=== PATIENT | female | born 2000 | race Caucasian/White ===

== ENCOUNTER → 2025-02-06 | Outpatient (CLI) | payer OTHER, SELFPAY ==
--- OUTSIDE RECORDS SUMMARY | 2025-02-06 09:40 | XMS RPT_ITS | CCD ---
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 Name Role Phone PROVIDER, UNKNOWN Admitting Unavailable PROVIDER, UNKNOWN Attending Unavailable DIAZ, CHUY Attending Unavailable LUIS ENRIQUE ANDERSON Consulting Unavailable DIAZ, CHUY Primary Care Unavailable DIAZ, CHUY Admitting Unavailable PROVIDER, UNKNOWN Consulting Unavailable PROVIDER, UNKNOWN Consulting Unavailable PROVIDER, UNKNOWN Consulting Unavailable DIAZ, CHUY Attending Unavailable BROWN, LUIS ENRIQUE Consulting Unavailable DIAZ, CHUY Primary Care Unavailable DIAZ, CHUY Admitting Unavailable PROVIDER, UNKNOWN Consulting Unavailable PROVIDER, UNKNOWN Consulting Unavailable PROVIDER, UNKNOWN Consulting Unavailable LUIS ENRIQUE ANDERSON Attending Unavailable BROWN, LUIS ENRIQUE Consulting Unavailable BROWN, LUIS ENRIQUE Primary Care Unavailable BROWN, LUIS ENRIQUE Admitting Unavailable PROVIDER, UNKNOWN Consulting Unavailable PROVIDER, UNKNOWN Consulting Unavailable PROVIDER, UNKNOWN Consulting Unavailable DIAZ, CHUY Attending Unavailable BROWN, LUIS ENRIQUE Consulting Unavailable DIAZ, CHUY Primary Care Unavailable DIAZ, CHUY Admitting Unavailable PROVIDER, UNKNOWN Consulting Unavailable PROVIDER, UNKNOWN Consulting Unavailable PROVIDER, UNKNOWN Consulting Unavailable DIAZ, CHUY Attending Unavailable HECTOR, LUIS ENRIQUE Consulting Unavailable DIAZ, CHUY Primary Care Unavailable DIAZ, CHUY Admitting Unavailable PROVIDER, UNKNOWN Consulting Unavailable PROVIDER, UNKNOWN Consulting Unavailable PROVIDER, UNKNOWN Consulting Unavailable BROWN, LUIS ENRIQUE Consulting Unavailable DIAZ, CHUY Admitting Unavailable DIAZ, CHUY Attending Unavailable DIAZ, CHUY Primary Care Unavailable PROVIDER, UNKNOWN Consulting Unavailable PROVIDER, UNKNOWN Consulting Unavailable PROVIDER, UNKNOWN Consulting Unavailable DIAZ, CHUY Admitting Unavailable BROWN, LUIS ENRIQUE Consulting Unavailable DIAZ, CHUY Attending Unavailable DIAZ, CHUY Primary Care Unavailable PROVIDER, UNKNOWN Consulting Unavailable PROVIDER, UNKNOWN Consulting Unavailable PROVIDER, UNKNOWN Consulting Unavailable BARRETT DELGADILLO Attending Unavail able BARRETT DELGADILLO Attending Unavail able MILANJASON SKINNER Attending Unavailable LUIS ENRIQUE ANDERSON F Primary Care Unavailable LUIS ENRIQUE ANDERSON F Referring Unavailable BROWN, LUIS ENRIQUE F Primary Care Unavailable LUIS ENRIQUE ANDERSON F Referring Unavailable MILAN, AMY Attending Unavailable MILAN, JASON Attending Unavailable JASON YATES Referring Unavailable LUIS ENRIQUE ANDERSON Primary Care Unavailable Luis Enrique Anderson MD Unavailable (Cardona), Froy Harp [facility] Unavailable Patricia HIDE WORKER, No Unavailable Unavailabl e Day HIDE WORKER, Kenna Unavailable Unavailable Malcolm HIDE WORKER, Lauren E Unavailable Unavailable King FISH-C, Miguelito Molina Unavailable Germaine MARVIN, Sobia Oquendo Unavailable Unavaila ble Mutersbaugh HIDE WORKER, Jolynn K Unavailable Unavai terry ROWANC, Dixie J Unavailable Edilson (Loly), Neville Unavailable Unavailab le Hedy HIDE WORKER, Veena Baires Unavailable Unavailab le Margot HIDE WORKER, Kristin San Unavailable Unavailab osmani Gavin MD, Terrence Oquendo Unavailable Vess HIDE WORKER, Nemariya L Unavailable Unavailable Wengerd HIDE WORKER, Maryana Unavailable Unavailabl e Unavailable Unavailable Robert HIDE WORKER, Pawel Unavailable Unavailable Johanna Lam Unavailable Unavailable Luis Enrique Anderson Primary Care Unavailable Alfredito Pinzon Attending Unavailable Luis Enrique Anderson Referring Unavailable Luis Enrique Anderson Primary Care Unavailable Alfredito Pinzon Attending Unavailable Luis Enrique Anderson Referring Unavailable Luis Enrique Anderson Referring Unavailable Luis Enrique Anderson Primary Care Unavailable Alfredito Pinzon Attending Unavailable Allergies Allergy Classification Reported Allergen(s) Allergy Type Date of Onset Reaction(s) Facility (1 source) OTHER; Translations: [OTHER] Propensity to adverse reactions to food (disorder) 08-03-20 [facility] Repository (14 sources) Acetaminophen / Dextromethorphan / Doxylamine / Phenylephrine Drug Allergy [facility], [facility]. (1 source) Aspirin Drug Allergy 12-05-19 [facility] Repository (1 source) Chlorpheniramine Drug Allergy 12-05-19 [facility] Repository (1 source) Dextromethorphan Drug Allergy 12-05-19 [facility] Repository (1 source) Phenylpropanolamine Drug Allergy 12-05-19 [facility] Repository Medications Current Medications Medication Drug Class(es) Dates Sig (Normalized) Sig (Original) fluticasone (20 sources) Corticosteroid FLOVENT HFA, 110 MCG/ACT (Inhalation Aerosol) ; as needed (110 MCG/ACT) Status: Inactive Flovent HFA Glucagon Emergency 1 MG Injection Kit (14 sources) Glucagon Emergen cy 1 MG Injection Kit ; inject 1ml daily (1 MG) hydrOXYzine hydrochloride 25 mg oral tablet (14 sources) Antihistamine Start: 07-03-2024 hydrOXYzine HCL 25 mg tablet ; 1/2 to 1 Tablet TID prn anxiety for 0 days Quantity: 60 {Tablet} Refills: 1 Ordered: 03-Jul-2024 HEVER Fink Start: 03-Jul-2024 Start: 12-06-2023 hydrOXYzine HC L 25 mg tablet ; 1/2 to 1 Tablet TID prn anxiety for 0 days Quantity: 30 {Tablet} Refills: 0 Ordered: 06-Dec-2023 ZINA Jones Start: 06-Dec-2023 insulin lispro 100 unt/ml injectable solution (14 sources) Insulin Analog inject 100 [IU] by subcutaneous injection once daily Insulin Lispro 100 UNIT/ML Subcutaneous Solution ; use up to 100 units daily via pump (100 UNIT/ML) loratadine 10 mg oral tablet (14 sources) take 1 tablet by mouth once daily Claritin 10 MG Oral Tablet ; 1 daily (10 MG) montelukast 5 mg chewable tablet (14 sources) Leukotriene Receptor Antagonist take 1 tablet by mouth once daily SINGULAIR, 5MG (Oral Tablet Chewable) ; 1 daily (5 MG) ondansetron 4 mg oral tablet (20 sources) Serotonin-3 Receptor Antagonist Start: 08-17-20 ondansetron HCL 4 mg tablet ; 1 (one) tablet every 8 hours as needed for vomiting for 0 days Quantity: 20 {Tablet} Refills: 0 Ordered: 17-Aug-2024 HEVER Fink Start: 17-Aug-2024 Comments: Medication taken as needed. Review necessary timing between doses of hydroxyzine and this med. Start: 07-03-2024 ondansetron HC L 4 mg tablet ; 1 (one) tablet every 8 hours as needed for vomiting for 0 days Quantity: 15 {Tablet} Refills: 0 Ordered: 03-Jul-2024 HEVER Fink Start: 03-Jul-2024 Comments: Medication taken as needed. Review necessary timing between doses of hydroxyzine and this med. Start: 12-06-2023 ondansetron HC L 4 mg tablet ; 1 (one) tablet every 8 hours as needed for vomiting for 0 days Quantity: 10 {Tablet} Refills: 0 Ordered: 06-Dec-2023 ZINA Jones Start: 06-Dec-2023 Comments: Medication taken as needed. Review necessary timing between doses of hydroxyzine and this med. Start: 08-29-2021 End: 12-06-2023 take 1 tablet by mouth every six hours as needed for nausea Zofran 4 MG Oral Tablet ; 1 (one) Tablet q 6hrs prn nausea for 0 days Quantity: 20 {Tablet} Refills: 0 Ordered: 29-Aug-2021 ZINA Gomez Start: 29-Aug-2021 End: 06-Dec-2023 Status: Discontinued Comments: Discontinued by Medication vendor. take 1 tablet by camryn th every twelve hours as needed for nausea Ondansetron 4 MG Oral Tablet Disintegrating ; 1 every 12 hours PRN for nausea (4 MG) Status: Inactive Comment on above: Discontinued by [facility]. Medication taken as needed. Review necessary timing between doses of hydroxyzine and this med. sertraline 100 mg oral tablet (14 sources) Serotonin Reuptake Inhibitor Start: 07-03-2024 sertraline 100 mg tablet ; 1 tablet daily for 0 days Quantity: 90 {Tablet} Refills: 1 Ordered: 03-Jul-2024 HEVER Fink Start: 03-Jul-2024 Start: 04-15-2024 sertraline 100 mg tablet ; 1 tablet daily for 0 days Quantity: 30 {Tablet} Refills: 5 Ordered: 15-Apr-2024 HEVER Fink Start: 15-Apr-2024 Start: 12-06-2023 sertraline 50 mg tablet ; 1/2 tablet daily x 1 week and then increase to 1 tab daily for 0 days Quantity: 30 {Tablet} Refills: 5 Ordered: 06-Dec-2023 ZINA Jones Start: 06-Dec-2023 Completed/Discontinued Medications Medication Drug Class(es) Dates Sig (Normalized) Sig (Original) albuterol 0.83 mg/ml inhalation solution (20 sources) beta2-Adrenergic Agonist Albuterol Sulfate (2 .5 MG/3ML) 0.083% Inhalation Nebulization Solution ; ((2.5 MG/3ML) 0.083%) Status: Inactive Ventolin HFA 108 (90 Base) MCG/ACT Inhalation Aerosol Solution ; 2 puff as directed (108 (90 Base) MCG/ACT) Status: Inactive amoxicillin 500 mg oral tablet (14 sources) Penicillin-class Antibacterial Start: 07-04-2012 End: 07-14-2012 take 1 tablet by mouth three times daily AMOXICILLIN, 500MG (Oral Tablet) ; 1 Tablet TID for 10 days Quantity: 30 {Tablet} Refills: 0 Ordered: 04-Jul-2012 HEVER Fink Start: 04-Jul-2012 End: 14-Jul-2012 Status: Inactive amoxicillin 875 mg / clavulanate 125 mg oral tablet (20 sources) Penicillin-class Antibacterial Start: 03-18-2019 End: 09-01-2019 take 1 tablet by mouth twice daily Amoxicillin-Pot Clavulanate 875-125 MG Oral Tablet ; 1 (one) Tablet bid for 0 days Quantity: 20 {Tablet} Refills: 0 Ordered: 01-Sep-2019 ZINA Frost Kristin San Start: 18-Mar-2019 End: 01-Sep-2019 Status: Inactive Start: 11-05-2016 End: 11-07-2016 take 1 tablet by mouth twice daily at mealtime Augmentin 875-125 MG Oral Tablet ; 1 Tab two times daily for 10 days Quantity: 20 {Tablet} Refills: 0 Ordered: 07-Nov-2016 MD Luis Enrique Anderson Start: 05-Nov-2016 End: 07-Nov-2016 Status: Inactive Comments: Take with food Comment on above: Take with food benzonatate 100 mg oral capsule (14 sources) Non-narcotic Antitussive Start: 0 End: 0 take 1 capsule by mouth three times daily as needed for cough Tessalon Perles 100 MG Oral Capsule ; 1 (one) Capsule tid prn cough for 10 days Quantity: 30 {Capsule} Refills: 0 Ordered: 12-Sep-2019 MD Luis Enrique Anderson Start: 12-Sep-2019 End: 22-Sep-2019 Status: Inactive cephalexin 500 mg oral capsule (20 sources) Cephalosporin Antibacterial Start: 7 End: 7 take 1 capsule by mouth three times daily Cephalexin 500 MG Oral Capsule ; 1 Capsule three times daily for 10 days Quantity: 30 {Capsule} Refills: 0 Ordered: 30-Jan-2017 MD Luis Enrique Anderson Start: 14-Dec-2016 End: 24-Dec-2016 Status: Inactive take 1 capsule by mouth twice da froilan Cephalexin 500 MG Oral Capsule ; 1 two times daily fro 10 days (500 MG) Status: Inactive doxycycline hyclate 100 mg oral tablet (14 sources) Tetracycline-class Drug Start: 09-12-2019 End: 09-22-2019 take 1 tablet by mouth twice daily Doxycycline Hyclate 100 MG Oral Tablet ; 1 (one) Tablet bid for 10 days Quantity: 20 {Tablet} Refills: 0 Ordered: 12-Sep-2019 MD Luis Enrique Anderson Start: 12-Sep-2019 End: 22-Sep-2019 Status: Inactive insulin aspart, human 100 unt/ml injectable solution (14 sources) Insulin Analog NOVOLOG, 100UNIT/ML (Subcutaneous Solution) ; as directed (100 UNIT/ML) Status: Inactive insulin glargine 100 unt/ml injectable solution (14 sources) Insulin Analog Insulin Glargine 100 UNIT/ML Subcutaneous Solution ; 25 units SQ as pump back up as directed (100 UNIT/ML) Status: Inactive oseltamivir 75 mg oral capsule (14 sources) Neuraminidase Inhibitor Start: 08-16-2017 End: 08-21-2017 take 1 capsule by mouth twice daily Tamiflu 75 MG Oral Capsule ; 1 (one) Capsule twice daily for 5 days Quantity: 10 {Capsule} Refills: 0 Ordered: 16-Aug-2017 MD Luis Enrique Anderson Start: 16-Aug-2017 End: 21-Aug-2017 Status: Inactive predniSONE 20 mg oral tablet (20 sources) Start: 03-18-2019 End: 09-01-2019 take 1 tablet by mouth once daily predniSONE 20 MG Oral Tablet ; 1 (one) Tablet daily taper for 0 days Quantity: 10 {Tablet} Refills: 0 Ordered: 01-Sep-2019 ZINA Frost Kristin San Start: 18-Mar-2019 End: 01-Sep-2019 Status: Inactive Comments: day 1 20 mgday 2,3, 15 mg/ekta 4,5,6 10 mg/ekta 7,8,9 7.5 mg/ekta 10,11,12 5mg/ekta 13,14,15 2.5 mg /day Start: 03-18-2019 End: 09-01-2019 predniSONE 5 MG Oral Tablet ; 1/2 Tablet take as directed at end of taper for 0 days Quantity: 2 {Tablet} Refills: 0 Ordered: 01-Sep-2019 ZINA Frost Kristin San Start: 18-Mar-2019 End: 01-Sep-2019 Status: Inactive Start: 12-14-2016 End: 02-11-2017 take 3 tablets by mouth once daily, then take 2 tablets by mouth once daily, then take 1 tablet by mouth once daily, then take 0.5 tablet by mouth once daily PredniSONE 20 MG Oral Tablet ; Tablet for 0 days Quantity: 20 {Tablet} Refills: 0 Ordered: 11-Feb-2017 SHAVONNE Herron Start: 14-Dec-2016 End: 11-Feb-2017 Status: Inactive Comments: Take 3tabs qd for 3 days thenTake 2tabs qd for 3 days thenTake 1tab qd for 3 days thenTake 1/2tab qd for 4 days. Comment on above: day 1 20 mgday 2,3, 15 mg/ekta 4,5,6 10 mg/ekta 7,8,9 7.5 mg/ekta 10,11,12 5mg/ekta 13,14,15 2.5 mg /day Take 3tabs qd for 3 days thenTake 2tabs qd for 3 days thenTake 1tab qd for 3 days thenTake 1/2tab qd for 4 days. sulfamethoxazole 800 mg / trimethoprim 160 mg oral tablet (14 sources) Dihydrofolate Reductase Inhibitor Antibacterial, Sulfonamide Antimicrobial Start: 01-03-20 End: 01-10-20 take 1 tablet by mouth twice daily Bactrim DS 800-160 MG Oral Tablet ; 1 Tab two times daily for 7 days Quantity: 14 {Tablet} Refills: 0 Ordered: 02-Jan-2019 HEVER Fink Start: 02-Jan-2019 End: 09-Jan-2019 Status: Inactive Problems Active Problems Problem Classification Problem Date Documented Date Episodic/Chronic Abdominal pain (20 sources) Right lower quadrant pain; Translations: [Right lower quadrant pain] 05-19-2021 Episodic Acute bronchitis (20 sources) Acute bronchitis; Translations: [Acute bronchitis, unspecified] 05-16-2017 Episodic Administrative/social admission (20 sources) Repeated prescription; Translations: [Encounter for issue of repeat prescription] 03-18-2020 Episodic Allergic reactions (20 sources) Idiopathic urticaria; Translations: [Idiopathic urticaria] 05-19-2021 Episodic Anxiety disorders (20 sources) Anxiety; Translations: [Anxiety disorder, unspecified] 12-06-2023 Chronic Comment on above: SABRA-7 score of 10 Asthma (20 sources) Asthma; Translations: [Unspecified asthma, uncomplicated] 05-19-2021 Chronic Chronic obstructive pulmonary disease and bronchiectasis (20 sources) Bronchitis; Translations: [Bronchitis, not specified as acute or chronic] 03-18-2020 Episodic Diabetes mellitus with complications (1 source) Type 1 diabetes mellitus with hyperglycemia; Translations: [Type 1 diabetes mellitus with hyperglycemia] Onset: 12-04-2024 Chronic Diabetes mellitus without complication (20 sources) Type 1 diabetes mellitus; Translations: [Type 1 diabetes mellitus without complications] 12-06-2023 Chronic Diabetes mellitus without complication (1 source) Presence of insulin pump (external) (internal); Translations: [Presence of insulin pump (external) (internal)] Onset: 12-04-2024 Episodic Fever of unknown origin (20 sources) Fever; Translations: [Fever, unspecified] 05-19-2021 Episodic Immunizations and screening for infectious disease (20 sources) Encounter for screening for other viral diseases; Translations: [Needs influenza immunization] Onset: 07-28-2020 07-27-2016 Episodic Nausea and vomiting (4 sources) Nausea; Translations: [Nausea] 08-17-2024 Episodic Noninfectious gastroenteritis (20 sources) Gastroenteritis; Translations: [Noninfective gastroenteritis and colitis, unspecified] 09-01-2019 Episodic Other upper respiratory infections (20 sources) Pharyngitis; Translations: [Acute pharyngitis, unspecified] 03-07-2017 Episodic Otitis media and related conditions (20 sources) Otitis media of left ear; Translations: [Otitis media, unspecified, left ear] 03-18-2020 Episodic Skin and subcutaneous tissue infections (20 sources) Abscess; Translations: [Cutaneous abscess, unspecified] 05-19-2021 Episodic Unclassified (14 sources) Abdominal pain - The onset of the abdominal pain has been acute and has been occurring in an intermittent pattern for 3 days. The course has been increasing. The pain is described as a moderate sharp pain. The pain is located in the right lower quadrant and radiates to the left lower quadrant. The symptoms are aggravated by breathing, walking and motion. The symptoms have been associated with nausea (first day), while the symptoms have not been associated with constipation, dark urine, diarrhea, dysuria, fever or vomiting. Note for Abdominal pain: Did initially feel that she needed to have BM.No coorelation with food.Pain is 6/10 at its worst - took pain med yesterday which did dull it some.States if she sleeps on the opposite side it is better at times.Menstrual cycle is regular and last period was 2 wks ago; not sexually active. 03-07-2017 Unclassified (14 sources) Back pain - The onset of the back pain has been sudden and has been occurring in an intermittent pattern for 3 days. The course has been recurrent. The pain is located in the lower back (on the right side and is described as being sharp pains) and does not radiate. There has been no associated chills or fever (temp currently is 99.5F). Note for Back pain: Did have burning on urination once and on the first day of having the back pain did have urinary frequency and urgency. Denies having nausea or vomiting. Has taken Tylenol for pain. Will have the back pain when she lies down or with certain movements. Not sexually active. 02-11-2017 Unclassified (6 sources) Follow up for multiple chronic conditions - The patient is here for follow-up of anxiety, depression and diabetes (type 1). The patient always takes the prescribed medications. No side effects noted. The patient has an active lifestyle but no regular exercise program. The patient's dietary compliance is fairly good usually adhering to recommendations. The patient states that there is no recent angina or dyspnea and they do not have headaches. The patient states that the disease has no overall impact. Note for Multiple chronic conditions follow-up: Patient states she is doing better overall. Believes the medications are a good fit for her. No concerns voiced at this time.Has needed the hydroxyzine due to being overwhelmed with extra responsibilities - it is effective when she needs it.Still doing counseling but is transitioning to a new one. 07-03-2024 Unclassified (8 sources) Unspecified Diagnosis 08-12-2024 Urinary tract infections (20 sources) Acute urinary tract infection; Translations: [Urinary tract infection, site not specified] 03-07-2017 Episodic Past or Other Problems Problem Classification Problem Date Documented Da te Episodic/Chronic Unclassified (14 sources) Well adult female - The patient feels well with minor complaints, has decreased energy level and is sleeping poorly. The first day of the last menstrual period was : (11/07/23). The patient has a balanced diet. The patient exercises daily. The patient sleeps 5 hours per night. Note for Well adult female: Patient states she would like to discuss depression and anxiety today. Has noticed for the past year but progressively worsening. 12-06-2023 Unclassified (14 sources) Well adult female - The patient feels well with minor complaints (Stressed out with school), has good energy level and is sleeping well. The first day of the last menstrual period was : (05/02/2021). The patient is not using any method of contraception at this time. The patient has a balanced diet and takes supplemental vitamins. The patient does not exercise. The patient sleeps 7 hours per night. 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 05-19-2021 Unclassified (14 sources) Cold Symptoms - Symptoms include nasal congestion, runny nose, ear pain, sore throat, productive cough (intermittent), fever, chills, general malaise (body aches) and facial pain (sinus pressure). The onset was sudden 2 day(s) ago. The symptoms occur constantly. The patient describes this as worsening. Current treatment includes allergy medications and Ventolin inhaler, Albuterol Nebulizer. Note for Upper respiratory infection: reviewed by [facility] 03-18-2020 Unclassified (14 sources) Cold Symptoms - Symptoms include scratchy throat, hoarseness, productive cough, wheezing and headache (occasionally), but do not include sneezing, nasal congestion, runny nose, ear pain, sore throat, fever, chills, general malaise or facial pain. The onset was sudden 10 day(s) ago. The symptoms occur frequently. The patient describes this as moderate in severity and worsening. Current treatment includes allergy medications (using inhalers). Note for Upper respiratory infection: She wasin a few weeks ago w GE. Glucose has been doing well. 09-12-2019 Unclassified (14 sources) Vomiting - Symptoms include nausea and vomiting. Onset was sudden 6 day(s) ago. The symptoms occur intermittently. The patient describes this as moderate in severity and unchanged. Associated symptoms include fever (low grade), chills, headache, lightheadedness (sometimes), fatigue and diarrhea (started with diarrhea 6 days ago. Lasted 3 days and then started with vomiting.). Note for Vomiting: Also complains of a dry cough. She is a type IDDM. Glucoses have been in the 15-160 area until last night. Was low last night ( 48 ) then she ate to bring it up and was high today. 09-01-2019 Unclassified (14 sources) Rash - The onset of the rash has been sudden and has been occurring in a persistent pattern for 3 weeks. The course has been increasing. The rash is characterized as red. The rash was first seen on the upper extremity and the lower extremity. There has been no progression. There has been associated itching and pain, while there has been no associated drainage, erythema or edema. Note for Rash: Patient had what she thought was an allergic reaction to [facility] Cold medicine and went to the emergency room for them. She was given Prednisone 40mg for one week to relieve the hives that appeared with the reaction. After she was done with the Prednisone, the hives came back and has continued for 2 weeks and is worse in the evening. Patient had an abcess on her back that was removed with surgery. Patient also has an axillary node that is enlarged on the left side. 03-18-2019 Unclassified (3 sources) Transition into care - The patient is transitioning into care from a hospital ([facility] 01/05 to 01/06/2019.) and a summary of care was reviewed. 01-09-2019 Unclassified (3 sources) [ADDITIONAL REASON] Follow up from hospital stay - Name of Hospital: [facility]. Date of Admission: 01/05/2019. Date of Discharge: 01/06/2019. The patient was hospitalized for Left Buttock Abscess. New medications include Cephalexin and Medications discontinued include Bactrim DS. Consultations ordered while in the hospital include is to schedule 2 week f/u with surgeon . No post hospital therapies were ordered. Patient was discharged to home. Note for Follow up from hospital stay: Has some tenderness of left buttock, area is improving. No fever or chills. reviewed by [facility] 01-09-2019 Unclassified (14 sources) infected spot - Patient is here complaining of a spot on her left side of buttocks that started out looking like a pimple - it has gotten bigger - red and warm. Very tender and hurts to sit. Gets worse as day goes. Noticed it 4 days ago and is gettng worse. No treatment. No fever. Nauseated. 01-02-2019 Unclassified (14 sources) Well Adult, female - The patient feels well with no complaints, has good energy level and is sleeping well. The first day of the last menstrual period was : (02-03-18). The patient is not using any method of contraception at this time. The patient has a balanced diet and takes no supplemental vitamins & iron. The patient does not exercise. The patient sleeps 7 hours per night. 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 Bronchitis. 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 Just wants cleared for this and see if she needs any additional inhalers. PO today 99%.) on : (05/16/17. Was discharged on Zithromax and is finioshed with that. Was given fluids and IV Roceohin in ER.). Current symptoms include cough (Still has a dry cough. Using her inhaler- Flovent. Only uses the Ventolin for activities-sports.) and dyspnea (on exdertion. Seerms more so since being sick and with SOB has the cough.). Past medical history includes asthma. Note for Consultation follow-up: Diabetic and on insulin pump (humalog) Fasting sugar today 138. reviewed by [facility] 05-28-2017 Unclassified (10 sources) [ADDITIONAL REASON] Transition into care - The patient is transitioning into care from an emergency room and a summary of care was reviewed. 05-28-2017 Unclassified (14 sources) Cold Symptoms - Symptoms include nasal congestion, runny nose, ear pain (left), sore throat, scratchy throat, dry cough, productive cough, fever (felt warm), chills and headache. The onset was gradual 2 day(s) ago. The symptoms occur constantly. The patient describes this as moderate in severity and worsening. Current treatment includes an oral decongestant and acetaminophen. Risk factors do not include child in daycare or smoking. The patient has not been exposed to an individual with a cough, an individual with an upper respiratory infection, an individual with similar symptoms or an individual with strep. Medical history includes asthma. Note for Upper respiratory infection: Patient also has been vomiting. 05-16-2017 Unclassified (14 sources) Cold Symptoms - Symptoms include sneezing, nasal congestion, runny nose, ear fullness, sore throat, hoarseness, dry cough, wheezing, fever, chills, general malaise and headache. The onset was sudden 4 day(s) ago. The symptoms occur constantly. The patient describes this as moderate in severity and worsening. Current treatment includes non-prescription cold medication. Risk factors do not include smoking. The patient has been exposed to an individual with a cough and an individual with an upper respiratory infection. Medical history includes seasonal allergies and asthma. Note for Upper respiratory infection: reviewed by [facility] 12-14-2016 Unclassified (14 sources) Boil - Pt here today because she was using a black head mask to some black heads on her face. There was one on her left cheek that she feels may have become infected from this. Area started out with a small black dot and then a boil appeared. This morning the area started draining a bloody drainage and is very sore. She also is complaining of feeling a little nauseated and warm. No fever noted. Pt is diabetic and on insulin. Pt states that her sugars have been running high lately. Bood sugar before breakfast today was 150. reviewed by [facility] 11-05-2016 Unclassified (14 sources) Form Completion Physicals - The patient feels well with no complaints, has good energy level and is sleeping well. There are no current symptoms. The patient exercises 3 - 4 times per week. The patient has an appropriate balanced diet and takes no supplemental vitamins or iron and sleeps on average 7 hours per night. Safety measures include appropriate use of car seats/safety belts, appropriate use of helmets, appropriate use of safety belts, avoiding exposure to passive smoke and awareness of dangers of passenger-side air bags. There are no behavioral problems. Note for Form completion physical: Reviewed by GRACIELA. 03-15-2016 Unclassified (14 sources) Cold Symptoms - Symptoms include sore throat, fever (low grade) and general malaise (nausea), but do not include headache. The onset was sudden 1 day(s) ago. The symptoms occur constantly. The patient describes this as severe and worsening. Current treatment includes allergy medications (singulair). Risk factors do not include smoking. Medical history includes seasonal allergies. Note for Upper respiratory infection: she had cold sx x one week, those went away and the next day (yesterday) started with sore throat 04-24-2015 Unclassified (14 sources) Well child visit #4 - 13 to 17 years - The child is here for a 15 to 16 year well-child visit. The primary caregiver is the mother and father. The primary caregiver has no significant help or support. Family status: coping adequately. There are no behavioral problems. The patient has a balanced diet. There are no eating difficulties. Meals/day: 3. The child sleeps 8 hours at night. The child performs well in school, interacts well with peers and participates in extracurricular activities (Participating in Tennis and Marching Band). Safety measures taken include appropriate use of safety belts, home smoke detectors and avoiding exposure to passive smoke. 03-16-2015 Unclassified (14 sources) Well child visit #4 - 13 to 17 years - The child is here for a 14 to 15 year well-child visit. The primary caregiver is the mother and father. Family status: coping adequately. There are no behavioral problems. The patient has a balanced diet, takes supplemental vitamins and takes supplemental iron. There are no eating difficulties. Meals/day: 3. The child sleeps 10 hours at night. Menstruation: irregular periods (STATES Dont have them every month). The child performs well in school, interacts well with peers and participates in extracurricular activities. Safety measures taken include appropriate use of safety belts. Note for Well child visit #4 - 13 to 17 years: Pt is an insulin dependant diabetic 10-14-2013 Unclassified (14 sources) Form Completion Physicals - The patient feels well with no complaints, has good energy level and is sleeping well. The patient has an appropriate balanced diet and takes suppemental vitamins and sleeps on average 7 hours per night. Note for Form completion physical: Sports physical. Will be participating in track. reviewed by [facility] 10-28-2012 Unclassified (14 sources) Ear pain - The onset of the pain has been sudden and has been occurring in a persistent pattern for hours. The course has been increasing. The pain is described as a moderate dull aching and stabbing. The pain is described as being located in the inner ear. The pain is felt in the left ear. There has been no associated fever, sore throat, runny nose or cough. Medical History includes ear infections (as a child) and seasonal allergies. Note for Ear pain: Also history of asthma; had a cold a couple of weeks ago but got over that. Got her flu shot yesterday and then the ear pain started last night. Took 1 advil last night. Put sweet oil in the ear. 07-04-2012 Unclassified (14 sources) Form Completion Physicals - The patient feels well with no complaints, has good energy level and is sleeping well. There are no current symptoms. The patient exercises daily. The patient has an appropriate balanced diet and takes suppemental vitamins and sleeps on average 8 hours per night. There are no behavioral problems. Last tetanus vaccination: Date: (12-08-2003). Note for Form Completion Physicals: reviewed by [facility] 10-17-2011 Unclassified (11 sources) Follow up from hospital stay - Name of Hospital: [facility]. Date of Admission: 01/05/2019. Date of Discharge: 01/06/2019. The patient was hospitalized for Left Buttock Abscess. New medications include Cephalexin and Medications discontinued include Bactrim DS. Consultations ordered while in the hospital include is to schedule 2 week f/u with surgeon . No post hospital therapies were ordered. Patient was discharged to home. Note for Follow up from hospital stay: Has some tenderness of left buttock, area is improving. No fever or chills. reviewed by [facility] 01-09-2019 Unclassified (11 sources) [ADDITIONAL REASON] Transition into care - The patient is transitioning into care from a hospital ([facility] 01/05 to 01/06/2019.) and a summary of care was reviewed. 01-09-2019 Unclassified (8 sources) Depression (Follow-up) - The last clinic visit was 1 month(s) ago. Management changes made at the last visit include adding medication (Sertraline, Hydroxyzine). Note for Depression: Pt seen 1 month ago for depression, started RX. Pt sates doing better.Doing counseling online once a week.Has only needed to take prn med a few times.Less crying, more motivation, less anxiety. 01-03-2024 Unclassified (4 sources) Transition into care - The patient is transitioning into care from an emergency room and a summary of care was reviewed. 05-28-2017 Unclassified (4 sources) [ADDITIONAL REASON] Follow up consultation - The patient is here to follow-up after Emergency Room/Urgent Care ([facility] and diagnosed with fever with cough. Bronchitis. 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 Just wants cleared for this and see if she needs any additional inhalers. PO today 99%.) on : (05/16/17. Was discharged on Zithromax and is finioshed with that. Was given fluids and IV Roceohin in ER.). Current symptoms include cough (Still has a dry cough. Using her inhaler- Flovent. Only uses the Ventolin for activities-sports.) and dyspnea (on exdertion. Seerms more so since being sick and with SOB has the cough.). Past medical history includes asthma. Note for Consultation follow-up: Diabetic and on insulin pump (humalog) Fasting sugar today 138. reviewed by [facility] 05-28-2017 Results Test Name Value Interpretation Reference Range Facility Endocrinology Visit Reporton 12-04-2024 Endocrinology Visit Report [facility] [address] [place] [address] OFFICE VISIT Date of Service: 12/04/24 MR#: [id number] Acct: [id number] Name: CAROLYNE GUTHRIE Rep #: [id number] : 2000 Provider: Dequan Varela Age/Sex: 24/F Location: [facility] Status: Signed Intake Vital Signs 07/31/24 13:18 12/04/24 13:06 Height 4 ft 10 in 4 ft 10 in Weight: 142 lb 142 lb 2 oz BMI 29.7 29.7 BP 136/85 H 147/92 H Blood Pressure Location Lt brachial Rt brachial Position Sitting Sitting Pulse 95 85 Pulse Source Monitor Monitor Pulse Oximetry (%) 97 98 Oxygen Delivery Method room air room air Intake Visit Reasons: 4 M FU Chief Complaint: Diabetes Is patient in pain?: No Allergies aspirin (From Milla-[place] Plus Cold/Cough) Allergy (Mild, Verified 12/04/24 13:18) Hives chlorpheniramine (From [place] Plus Cold/Cough) Allergy (Mild, Verified 12/04/24 13:18) Hives dextromethorphan (From [place]-[place] Plus Cold/Cough) Allergy (Mild, Verified 12/04/24 13:18) Hives phenylpropanolamine (From Milla-[place] Plus Cold/Cough) Allergy (Mild, Verified 12/04/24 13:18) Hives Medications ???Medication ???Instructions ???Recorded ???Confirmed ???Type acetaminophen 500 mg tablet 500 mg PO Q6H PRN 08/08/23 5 History (Tylenol Extra Strength) albuterol sulfate 2.5 mg/3 mL 2.5 mg continuous nebulization Q6H 08/08/23 12/04/24 History (0.083 %) solution for nebulization PRN albuterol sulfate 90 mcg/actuation 2 puff inhalation Q6H PRN 12/04/24 History aerosol inhaler clindamycin 1.2 % (1 % topical 08/08/23 12/04/24 History base)-benzoyl peroxide 5 % topical gel fluticasone propionate 220 1 puff inhalation BID 08/08/23 History mcg/actuation HFA aerosol inhaler (Flovent HFA) glucagon 1 mg solution for 1 mg subcut Q20M PRN 08/08/2311/17 History injection hydroxyzine HCl 25 mg tablet 25 mg PO BID PRN 08/08/23 12/04/24 History montelukast 10 mg tablet 5 - 10 mg PO DAILY 08/08/23 History acetone (urine) test (Ketostix #50 ea 02/06/24 12/04/24 Rx strips) sertraline 50 mg tablet (Zoloft) 50 mg PO DAILY 02/06/24 12/04/24 H istory glucagon 0.5 mg/0.1 mL 1 mg (0.2 mL) subcut ONCE #0.2 mL 07/31/24 12/04/24 Rx subcutaneous auto-injector (Gvoke HypoPen 2-Pack) insulin glargine 100 unit/mL 20 unit (0.2 mL) subcut QDAY PRN 1 10/01/23 12/04/24 Rx subcutaneous solution (Lantus pump failure #10 mL U-100 Insulin) blood sugar diagnostic (Accu-Chek #300 ea 12/04/24 12/04/24 Rx Guide test strips) insulin lispro 100 unit/mL 100 unit continuous subcutaneous 0 12/04/24 12/04/24 Rx subcutaneous solution infusion DAILY #90 mL PFSH Medical History Presence of insulin pump Anxiety Surgical History History of appendectomy Family History Grandfather Bone cancer Abscess Grandmother CVA (cerebral vascular accident) Diabetes Hypertension Fibromyalgia Arthritis Grandmother Diabetes Mother Asthma Father Asthma Abscess Social History Smoking Status: Never smoker Electronic Cigarette Use: not used second hand exposure: No alcohol intake: current alcohol intake frequency: holidays/special occasions only substance use type: does not use what type of physical activity do you participate in: yoga frequency: 3-4 times per week HPI HPI Chief Complaint: Diabetes Details: CAROLYNE GUTHRIE, is a 24 F who presents to the office today for follow up. A1C is 7.9% She is using Medtronic 780G insulin pump with Guardian CGM and auto mode. She hasn't had an A1C this high in a long time. In the past 2 weeks, she wasn't wearing her sensor much. With sensor on, TIR was over 80%. She is working 2 jobs so she can pay off her school loans. She is feeling well. ROS Const Constitutional: No fatigue, weight change or change in appetite Eyes Eyes: No change in vision ENT ENT: No dizziness/vertigo or difficulty swallowing Cardio Cardiology: No chest pain at rest, chest pain with exertion, shortness of breath or palpitations Musc Musculoskeletal: No abnormal gait, joint pain, numbness or tingling Neuro Neurology: No abnormal gait, memory loss, numbness or tingling Psych Psychiatric: No change in appetite, No memory loss and No Thoughts of harming yourself/Others Resp Respiratory: No cough, chest congestion or shortness of breath Gastro GI: No abdominal pain, constipation, diarrhea or difficulty swallowing Genitourinary-Female: No burning urination Skin Skin: No itchy eyes or wound (more content not included)... Normal [facility] Endocrinology Visit Reporton 07-31-2024 Endocrinology Visit Report [facility] [address] [place] [address] OFFICE VISIT Date of Service: 07/31/24 MR#: [id number] Acct: [id number] Name: CAROLYNE GUTHRIE Rep #: [id number] : 2000 Provider: Dequan Varela Age/Sex: 24/F Location: [facility] Status: Signed Intake Vital Signs 02/06/24 09:12 07/31/24 13:18 Height 4 ft 10 in 4 ft 10 in Weight: 134 lb 142 lb BMI 28.0 29.7 BP 136/80 H 136/85 H Blood Pressure Location Lt brachial Lt brachial Position Sitting Sitting Respiration 18 Pulse 82 95 Pulse Source Monitor Monitor Pulse Oximetry (%) 98 97 Oxygen Delivery Method room air room air Intake Visit Reasons: 6 M FU Chief Complaint: Diabetes [employer] Coordinator Required: No Accompanied by: Self Is patient in pain?: No Allergies aspirin (From Milla-[place] Plus Cold/Cough) Allergy (Mild, Verified 07/31/24 13:18) Hives chlorpheniramine (From Milla-[place] Plus Cold/Cough) Allergy (Mild, Verified 07/31/24 13:18) Hives dextromethorphan (From Milla-[place] Plus Cold/Cough) Allergy (Mild, Verified 07/31/24 13:18) Hives phenylpropanolamine (From Milla-[place] Plus Cold/Cough) Allergy (Mild, Verified 07/31/24 13:18) Hives Medications ???Medication ???Instructions ???Recorded ???Confirmed ???Type acetaminophen 500 mg tablet 500 mg PO Q6H PRN 08/08/23 07/31/24 History (Tylenol Extra Strength) albuterol sulfate 2.5 mg/3 mL 2.5 mg continuous nebulization Q6H 08/08/23 07/31/24 History (0.083 %) solution for nebulization PRN albuterol sulfate 90 mcg/actuation 2 puff inhalation Q6H PRN 08/08/23 07/31/24 History aerosol inhaler clindamycin 1.2 % (1 % topical 08/08/23 07/31/24 History base)-benzoyl peroxide 5 % topical gel fluticasone propionate 220 1 puff inhalation BID 08/08/23 07/31/24 History mcg/actuation HFA aerosol inhaler (Flovent HFA) glucagon 1 mg solution for 1 mg subcut Q20M PRN 08/08/23 07/31/24 History injection hydroxyzine HCl 25 mg tablet 25 mg PO BID PRN 08/08/23 07/31/24 History montelukast 10 mg tablet 5 - 10 mg PO DAILY 08/08/23 07/31/24 History acetone (urine) test (Ketostix #50 ea 02/06/24 07/31/24 Rx strips) blood sugar diagnostic (Accu-Chek #300 ea 02/06/24 07/31/24 Rx Guide test strips) sertraline 50 mg tablet (Zoloft) 50 mg PO DAILY 02/06/24 07/31/24 History glucagon 0.5 mg/0.1 mL 1 mg (0.2 mL) subcut ONCE #0.2 mL 07/31/24 07/31/24 Rx subcutaneous auto-injector (Gvoke HypoPen 2-Pack) insulin glargine 100 unit/mL 20 unit (0.2 mL) subcut QDAY PRN 07/31/24 07/31/24 Rx subcutaneous solution (Lantus pump failure #10 mL U-100 Insulin) insulin lispro 100 unit/mL 100 unit continuous subcutaneous 07/31/24 07/31/24 Rx subcutaneous solution infusion DAILY #90 mL PFSH Medical History Presence of insulin pump Anxiety Surgical History History of appendectomy Family History Grandfather Bone cancer Abscess Grandmother CVA (cerebral vascular accident) Diabetes Hypertension Fibromyalgia Arthritis Grandmother Diabetes Mother Asthma Father Asthma Abscess Social History Smoking Status: Never smoker Electronic Cigarette Use: not used second hand exposure: No alcohol intake: current alcohol intake frequency: holidays/special occasions only substance use type: does not use what type of physical activity do you participate in: yoga frequency: 3-4 times per week HPI HPI Chief Complaint: Diabetes Details: CAROLYNE GUTHRIE, is a 24 F who presents to the office today for follow up. A1C is 7.9% She is using Medtronic 780G insulin pump. She is not wearing her CGM. She is using fingersticks. She states that she just hasn't taken the time to pair her sensor with her new pump. ROS Const Constitutional: No fatigue, weakness, weight change or change in appetite Eyes Eyes: No change in vision ENT ENT: No hearing loss, nasal congestion or difficulty swallowing Cardio Cardiology: No chest pain at rest, chest pain with exertion or shortness of breath Musc Musculoskeletal: No numbness Neuro Neurology: No weakness, memory loss or numbness Psych Psychiatric: No change in appetite, No memory loss and No Thoughts of harming yourself/Others Resp Respiratory: No cough, chest congestion or shortness of breath Gastro GI: No abdominal pain, constipation, diarrhea or difficulty swallowing Genitourinary-Female: No burning urination Skin Skin: No itchy eyes or wounds Endo Endocrine: No fatigue or weight change Aller/Imm Allergy/Immunologic: No itchy eyes Exam Const General: (more content not included)... Normal [facility] - Hematology and Cell countson 07-31-2024 HbA1c (Bld) [Mass fraction] 7.9 % Abnormal 4.6 - 7.1 % [facility], [facility]. Endocrinology Visit Reporton 02-06-2024 Endocrinology Visit Report [facility] [address] [place] [address] OFFICE VISIT Date of Service: 02/06/24 MR#: [id number] Acct: [id number] Name: CAROLYNE GUTHRIE Rep #: [id number] : 2000 Provider: Dequan Varela Age/Sex: 23/F Location: [facility] Status: Signed Intake Vital Signs 08/08/23 08:43 02/06/24 09:12 Height 4 ft 10.27 in 4 ft 10 in Weight: 129 lb 134 lb BMI 26.6 28.0 BP 127/81 H 136/80 H Blood Pressure Location Lt brachial Lt brachial Position Sitting Sitting Respiration 18 Pulse 95 82 Pulse Source Monitor Monitor Temp 97.5 F L Temp Source Temporal Pulse Oximetry (%) 97 98 Oxygen Delivery Method room air room air Intake Visit Reasons: 6 M FU, RS 11/06 Chief Complaint: Diabetes Is patient in pain?: No Allergies aspirin (From Milla-Chester Plus Cold/Cough) Allergy (Mild, Verified 02/06/24 09:20) Hives chlorpheniramine (From Milla-[place] Plus Cold/Cough) Allergy (Mild, Verified 02/06/24 09:20) Hives dextromethorphan (From Milla-[place] Plus Cold/Cough) Allergy (Mild, Verified 02/06/24 09:20) Hives phenylpropanolamine (From Milla-[place] Plus Cold/Cough) Allergy (Mild, Verified 02/06/24 09:20) Hives Medications ???Medication ???Instructions ???Recorded ???Confirmed ???Type acetaminophen 500 mg tablet 500 mg PO Q6H PRN 08/08/23 02/06/24 History (Tylenol Extra Strength) albuterol sulfate 2.5 mg/3 mL 2.5 mg continuous nebulization Q6H 08/08/23 02/06/24 History (0.083 %) solution for nebulization PRN albuterol sulfate 90 mcg/actuation 2 puff inhalation Q6H PRN 08/08/23 02/06/24 History aerosol inhaler clindamycin 1.2 % (1 % topical 08/08/23 02/06/24 History base)-benzoyl peroxide 5 % topical gel fluticasone propionate 220 1 puff inhalation BID 08/08/23 02/06/24 History mcg/actuation HFA aerosol inhaler (Flovent HFA) glucagon 1 mg solution for 1 mg subcut Q20M PRN 08/08/23 02/06/24 History injection hydroxyzine HCl 25 mg tablet 25 mg PO BID PRN 08/08/23 02/06/24 History insulin glargine 100 unit/mL 20 unit subcut ONCE PRN 08/08/23 02/06/24 History subcutaneous solution (Lantus U-100 Insulin) insulin lispro 100 unit/mL 100 unit continuous subcutaneous 08/08/23 02/06/24 Rx subcutaneous solution infusion DAILY #90 mL montelukast 10 mg tablet 5 - 10 mg PO DAILY 08/08/23 02/06/24 History acetone (urine) test (Ketostix #50 ea 02/06/24 02/06/24 Rx strips) blood sugar diagnostic (Accu-Chek #300 ea 02/06/24 02/06/24 Rx Guide test strips) sertraline 50 mg tablet (Zoloft) 50 mg PO DAILY 02/06/24 02/06/24 History Is last menstrual period known: Yes Patient : No PFSH Medical History Presence of insulin pump Anxiety Surgical History History of appendectomy Family History Grandfather Bone cancer Abscess Grandmother CVA (cerebral vascular accident) Diabetes Hypertension Fibromyalgia Arthritis Grandmother Diabetes Mother Asthma Father Asthma Abscess Social History Smoking Status: Never smoker Electronic Cigarette Use: not used second hand exposure: No alcohol intake: current alcohol intake frequency: holidays/special occasions only substance use type: does not use what type of physical activity do you participate in: yoga frequency: 3-4 times per week HPI HPI Chief Complaint: Diabetes Details: CAROLYNE GUTHRIE, is a 23 F who presents to the office today for follow up. A1C is 7.2% She is using Medtronic insulin pump She hasn't been wearing her CGM. She was in the water a lot and she had one that didn't last 7 days. Discussed the importance of not conceiving until A1C is under 6.5% She had several viral infections since her last appointment. Exam Const General: cooperative, healthy appearing, comfortable, no acute distress, well developed and not cushingoid Nutritional Appearance: well nourished Orientation: alert, awake and oriented x3 HENMT Head: normal to inspection Ears: hearing grossly normal bilaterally Nose: external nose normal Mouth: oral mucosae normal Eyes General: appearance normal, both eyes and all related structures Alignment and Position: alignment normal Periorbital: periorbital findings normal Eyelids: eyelids normal Conjunctivae: conjunctivae normal Neck Neck: normal visual inspection Neck mass: No Thyroid: thyroid normal Lymphatic: no lymphadenopathy noted Chest Chest palpation inspection: normal inspection of the chest Resp Effort Inspection: normal respiratory effort, able to speak in complete sentences, symmetric chest mo (more content not included)... Normal [facility] CHLAMYDIA/N. GONORRHOEAE RNA , TMA, UROGENITALon 12-11-2023 CHLAMYDIA TRACHOMATIS RNA, TMA, UROGENITAL Not detected Normal NOT DETECTED [facility] Comment on above: Performed By: #### [id number] #### [facility] [address], [address] [place] [address] [employer]ale Planer Operator Helper: Inder Kuhn MD NEISSERIA GONORRHOEAE RNA, TMA, UROGENITAL Not detected Normal NOT DETECTED [facility] Comment on above: Performed By: #### 1 [id number] #### [facility] [address], [address] [place] [address] [employer] Operator Helper: Inder Kuhn MD THINPREP TIS PAP W/REFL HPV mRNA E6/E7on 12-11-2023 CLINICAL INFORMATION: Normal [facility] Comment on above: Result Comment: Rout ine exam Performed By: #### 1 [id number], [id number] #### [facility] [address], [address] [place] [address] [employer]er Operator Helper: Inder Kuhn MD COMMENT Normal [facility] Comment on above: Result Comment: EXPL ANATORY NOTE: The Pap is a screening test for cervical cancer. It is not a diagnostic test and is subject to false negative and false positive results. It is most reliable when a satisfactory sample, regularly obtained, is submitted with relevant clinical findings and history, and when the Pap result is evaluated along with historic and current clinical information. Performed By: #### 1 [id number], [id number] #### [facility] [address], [address] [place] [address] Shale Planer Operator Helper: Inder Kuhn MD Result Comment: The analytical performance characteristics of this assay, when used to test SurePath(TM) specimens have been determined by [employer]. The modifications have not been cleared or approved by the FDA. This assay has been validated pursuant to the CLIA regulations and is used for clinical purposes. For additional information, please refer to [email or web address].fm.[employer]/faq/IEE333 (This link is being provided for information/ educational purposes only.) COMMENT: Normal [facility] Comment on above: Result Comment: This Pap test has been evaluated with computer assisted technology. Performed By: #### 1 825, [id number] #### [facility] [place] [address] [employer] Plan[employer] Operator Helper: Inder Kuhn MD CELL TUBER MACHINE: Normal [facility] Comment on above: Result Comment: ELP, CT(ASCP) CT Screening Location: [place] [address] Performed By: #### 1 919, [id number] #### [facility] [place] [address] [employer] Operator Helper: Inder Kuhn MD INTERPRETATION/RESULT : Normal [facility] Comment on above: Result Comment: Cyto logy Results: Negative for intraepithelial lesion or malignancy. Performed By: #### 1 1363, [id number] #### [facility] [place] [address] [employer] Operator Helper: Inder Kuhn MD LMP: Normal [facility] Comment on above: Result Comment: None given Performed By: #### 1 1363, [id number] #### [facility] of [address], [address] [place] [address] Shale Planer Operator Helper: Inder Kuhn MD PREV. BX: Normal [facility] Comment on above: Result Comment: None given Performed By: #### 1 1363, [id number] #### [facility] of [address], [address] [place] [address] Shale Planer Operator Helper: Inder Kuhn MD PREV. PAP: Normal [facility] Comment on above: Result Comment: None given Performed By: #### 1 1363, 57602 #### [facility] of [address], [address] [place] [address] Shale Planer Operator Helper: Inder Kuhn MD REVIEW CELL TUBER MACHINE: Normal [facility] Comment on above: Result Comment: EMP, CT(ASCP) CT screening location: [place] [address]. Performed By: #### 1 1363, [id number] #### [facility] of [address], [address] [place] [address] Shale Planer Operator Helper: Inder Kuhn MD SOURCE: Normal [facility] Comment on above: Result Comment: None given Performed By: #### 1 1363, [id number] #### [facility] of [address], [address] [place] [address] Shale Planer Operator Helper: Inder Kuhn MD STATEMENT OF ADEQUACY: Normal [facility] Comment on above: Result Comment: Sati sfactory for evaluation. Endocervical/transformation zone component present. Performed By: #### 1 1363, 18351 #### [facility] of [address], [address] [place] [address] Shale Planer Operator Helper: Inder Kuhn MD No Panel Informationon 12-05 [id number] SEE NOTE Normal [facility] [id number] SEE NOTE Normal [facility] CHLAMYDIA TRACHOMATIS RNA, TMA, UROGENITAL Not detected Normal [facility] [employer]. CLINICAL INFORMATION: SEE NOTE Normal [facility] [employer], LIFEMODELER. COMMENT: SEE NOTE Normal [facility] [employer]. CELL TUBER MACHINE: SEE NOTE Normal [facility] [employer], LIFEMODELER. INTERPRETATION/RESULT : SEE NOTE Normal [facility] [employer], LIFEMODELER. LMP: SEE NOTE Normal [facility] [employer], LIFEMODELER. NEISSERIA GONORRHOEAE RNA, TMA, UROGENITAL Not detected Normal [facility] [employer]. PREV. BX: SEE NOTE Normal [facility] [employer]. PREV. PAP: SEE NOTE Normal [facility].; [employer], LIFEMODELER. REVIEW CELL TUBER MACHINE: SEE NOTE Normal [facility].; [employer], LIFEMODELER. SOURCE: SEE NOTE Normal [facility] [employer]. STATEMENT OF ADEQUACY: SEE NOTE Normal [facility] [employer]. Progress Noteon 09-17-2022 [employer] Authentication Interface Message Text Subjective: Patient ID: Carolyne Guthrie 2000 22 y.o. Diabetes History: Patient ID: Carolyne Guthrie is a 22 y.o. female with type 1 diabetes. She receives Her insulin via a Medtronic insulin pump. The initial diagnosis of diabetes was made in 2003. ICA antibodies were 1.9 U/mL. SABRA antibodies were 0.5 U/mL. Other Endocrine Conditions: 1. Short Stature -Normal Karyotype, IGF-1, IGFBP-3, and ESR -BONE AGE (06/22/13): CA: 13 yrs, 1 month, BA: 12 yrs, 6 months, APH: 58.5 2. Irregular Menses. Now regular Diabetes Assessment Review Flowsheet 05/23/2020 08/22/2020 08/22/2020 01/09/2021 01/09/2021 06/11/2022 09/17/2022 Patient/Family Reported Eye Exam Date - - 08/19/2017 08/19/2017 08/19/2019 08/19/2019 08/19/2019 Dental Exam - - 01/17/2018 01/17/2018 07/19/2020 07/19/2020 07/19/2020 Dietitian - - 06/07/2019 06/07/2019 06/07/2019 06/07/2019 06/07/2019 Annual Labs - 05/23/2020 05/23/2020 05/23/2020 05/23/2020 05/23/2020 06/11/2022 Microalbumin - - - - - - - Flu Vaccine - - - - - - - Foot Exam (If above 18 y.o.) 05/23/2020 05/23/2020 05/23/2020 05/23/2020 05/23/2020 05/23/2020 09/17/2022 Checks blood sugar minimum of 4x daily Yes - Yes - Yes Yes Yes Changes pump site every 3 days Yes - Yes - Yes Yes Yes Rotates pump/injection sites Yes - Yes - Yes Yes Yes Insulin administered before meals Yes - Yes - Yes Yes Yes Takes all insulin Yes - Yes - Yes Yes Yes Checks for ketones Yes - Yes - Yes Yes Yes Use of glucagon since last visit No - No - No No No Recognizes hypoglycemia Yes - Yes - Yes Yes Yes Follows Rule of 15 to treat lows Yes - Yes - Yes Yes Yes Wears a Medic Alert ID No - No - No No No Prescriptions No - Yes - No No No Alcohol consumption. If yes, how many beverages per week Yes - Yes - NA NA NA Insulin injections are given by Patient - Patient - Patient Patient Patient Patient performs independently Yes - Yes - Yes Yes Yes Rotation of sites for injection Arm(s) - Arm(s) - Thigh(s);Abdominal wall;Buttock(s) Thigh(s);Abdominal wall;Buttock(s) Thigh(s);Abdominal wall;Buttock(s) Exercise active - active - active active active Meal Planning Carbohydrate counting - Carbohydrate counting - Carbohydrate counting Carbohydrate counting Carbohydrate counting Compliance with blood glucose monitoring Good - Good - Good Good Good Date of diagnosis - - 04/19/2004 - - 04/19/2004 04/19/2004 >18 years of age - - Yes - Yes Yes Yes School Forms - - No - No No No BMV - - No - No No No Medical Records - - No - No No No HPI: Carolyne Guthrie was seen today due to her diagnosis of type 1 diabetes. HgbA1c trends at the last 2 visits are noted below: Last Results POCT glycosylated hemoglobin (Hb A1C) Collection Time: 09/17/22 9:10 AM Result Value Ref Range Hemoglobin A1C POC 7.6 (A) 4.0 - 6.0 % Last Results POCT glycosylated hemoglobin (Hb A1C) Collection Time: 06/11/22 10:41 AM Result Value Ref Range Hemoglobin A1C POC 7.5 (A) 4.0 - 6.0 % She is by herself at this visit. Interval History: She has been well. No ED visits or hospitalizations. No significant low blood glucose requiring glucagon. 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 Concerns for low blood glucose noted while working. Continues to follow with Dora in pulmonary. No new medical concerns. Screening: Eye exam: August 2019 last exam. Eye exam[place] [facility] [place]. Advised to make an appointment Dental: 07/2020. Dietitian: 12/2018- insurance does not cover dietitian visits Annual blood work: Labs completed 05/2020. All normal. Reordered today. Foot exam: 05/2020 Transition: She plans on transition to an Adult Endo in the upcoming 3-6 months. We discussed transition today SW also met with the family to discuss the transition process. Diabetes management: Recently changed to the 770 g with Guardian in Auto mode. Having low blood glucose since start. Low almost every shift at work Blood glucose review done on 09/07 showed low blood glucose. Recommended the following: decrease in 10 am, 5 pm and 8 pm carb ratios, change the basal rate overnight (lower) and the correction factor at 9 pm and 11 pm. She was not aware of any of the changes/recommendatio ns and so has not adjusted the pump settings. Auto mode- she likes it she like that it adjusts insulin delivery but feels that at work it does not prevent low blood glucose. She often will feel low blood glucose and start to treat before the pump alerts her to the issue. Yesterday she suspended pump while working as the pump did not catch the low. Low blood glucose continue. Is not using the temporary target features. Discussed in detail today. She has symptoms with low blood glucose. No diet changes. Wearing the sensor - on abdomen/arms Wearing the pump site- legs and hips Changing pump site every 2-3 days. Foot exam t (more content not included)... Normal [facility] Microalbuminon 06-12-2022 Creatinine Urine, [place]. 61.2 mg/dL Normal 28.0-217.0 [facility] Comment on above: Result Comment: Refe rence interval applies to first morning urine collection. No reference interval established for random urine collections. Performed By: #### M ALB #### [address] [address] Microalb (mg/L) <12 Normal [facility] Comment on above: Performed By: #### M ALB #### [address] [address] Microalb (ug/L) see below Normal [facility] Comment on above: Result Comment: The measured analyte concentration is either above or below the analytical measurement range. Results are unable to be calculated. Performed By: #### M ALB #### [address] [address] Microalb/Creat see below Normal 0-29 [facility] Comment on above: Result Comment: The measured analyte concentration is either above or below the analytical measurement range. Results are unable to be calculated. Performed By: #### M ALB #### [address] [address] Transglutaminase IgAon 06-12 Transglutaminase IgA <1.60 Normal 0.00-8.99 [facility] Comment on above: Order Comment: Relea se to patient->Automatic 75983&Blood Result Comment: NEGATIVE Interpretation of Results: Negative: <9.0 AU/mL Equivocal: 9.0-16.0 AU/mL Positive: >16.0 AU/mL Method: The anti-tTG antibodies were determined using an MIKE-based commercially available kit ([facility]tTG [facility]). Performed By: #### T RGLA #### [place] [address] Lipid Panelon 06-11-2022 Cholesterol in LDL [Mass/Vol] 100 mg/dL Normal 0-119 [facility] Comment on above: Order Comment: Relea se to patient->Automatic 88023&Blood Performed By: #### L IPID #### [place] [address] Non-HDL Cholesterol 117 mg/dL Normal 0-149 [facility] Comment on above: Order Comment: Relea se to patient->Automatic 10753&Blood Performed By: #### L IPID #### [address] [address] Cholesterol [Mass/Vol] 167 mg/dL Normal 0-189 [facility] Comment on above: Order Comment: Relea se to patient->Automatic 30237&Blood Result Comment: Acce ptable (mg/dL): <190 Borderline-High (mg/dL): 190-224 High (mg/dL): > or = 225 Reference: Recommendations of the [place] [employer] (Pediatrics, Jul 2011, 128 (Supplement 5) Q882-H823; DOI: 10.1542/peds.2008-2107C). Performed By: #### L IPID #### [place] [address] Cholesterol in HDL [Mass/Vol] 50 mg/dL Normal [facility] Comment on above: Order Comment: Relea se to patient->Automatic 83144&Blood Result Comment: Low (mg/dL): <40 Borderline-Low (mg/dL): 40-45 Acceptable (mg/dL): >45 Performed By: #### L IPID #### [address] [address] Triglyceride [Mass/Vol] 87 mg/dL Normal 0-114 [facility] Comment on above: Order Comment: Paula ureña to patient->Automatic 50594&Blood Performed By: #### L IPID #### [facility] [place] [address] Progress Noteon 06-11-2022 [employer] Authentication Interface Message Text Subjective: Patient ID: Carolyne Guthrie 2000 22 y.o. Diabetes History: Patient ID: Carolyne Guthrie is a 22 y.o. female with type 1 diabetes. She receives Her insulin via a Medtronic insulin pump. The initial diagnosis of diabetes was made in 2003. ICA antibodies were 1.9 U/mL. SABRA antibodies were 0.5 U/mL. Other Endocrine Conditions: 1. Short Stature -Normal Karyotype, IGF-1, IGFBP-3, and ESR -BONE AGE (06/22/13): CA: 13 yrs, 1 month, BA: 12 yrs, 6 months, APH: 58.5 2. Irregular Menses. Now regular Diabetes Assessment Review Flowsheet 10/19/2019 05/23/2020 08/22/2020 08/22/2020 01/09/2021 01/09/2021 06/11/2022 Patient/Family Reported Eye Exam Date 08/19/2017 - - 08/19/2017 08/19/2017 08/19/2019 08/19/2019 Dental Exam 01/17/2018 - - 01/17/2018 01/17/2018 07/19/2020 07/19/2020 Dietitian 06/07/2019 - - 06/07/2019 06/07/2019 06/07/2019 06/07/2019 Annual Labs 03/17/2019 - 05/23/2020 05/23/2020 05/23/2020 05/23/2020 05/23/2020 Microalbumin - - - - - - - Flu Vaccine - - - - - - - Foot Exam (If above 18 y.o.) 08/03/2019 05/23/2020 05/23/2020 05/23/2020 05/23/2020 05/23/2020 05/23/2020 Checks blood sugar minimum of 4x daily Yes Yes - Yes - Yes Yes Changes pump site every 3 days Yes Yes - Yes - Yes Yes Rotates pump/injection sites Yes Yes - Yes - Yes Yes Insulin administered before meals Yes Yes - Yes - Yes Yes Takes all insulin Yes Yes - Yes - Yes Yes Checks for ketones Yes Yes - Yes - Yes Yes Use of glucagon since last visit No No - No - No No Recognizes hypoglycemia Yes Yes - Yes - Yes Yes Follows Rule of 15 to treat lows Yes Yes - Yes - Yes Yes Wears a Medic Alert ID No No - No - No No Prescriptions No No - Yes - No No Alcohol consumption. If yes, how many beverages per week No Yes - Yes - NA NA Insulin injections are given by Patient Patient - Patient - Patient Patient Patient performs independently Yes Yes - Yes - Yes Yes Rotation of sites for injection Abdominal wall;Buttock(s) Arm(s) - Arm(s) - Thigh(s);Abdominal wall;Buttock(s) Thigh(s);Abdominal wall;Buttock(s) Exercise active active - active - active active Meal Planning Carbohydrate counting Carbohydrate counting - Carbohydrate counting - Carbohydrate counting Carbohydrate counting Compliance with blood glucose monitoring Good Good - Good - Good Good Date of diagnosis 04/19/2004 - - 04/19/2004 - - 04/19/2004 >17 years of age Yes - - Yes - Yes Yes School Forms No - - No - No No BMV No - - No - No No Medical Records No - - No - No No HPI: Carolyne Guthrie was seen today due to her diagnosis of type 1 diabetes. HgbA1c trends at the last 2 visits are noted below: Last Results POCT glycosylated hemoglobin (Hb A1C) Collection Time: 06/11/22 10:41 AM Result Value Ref Range Hemoglobin A1C POC 7.5 (A) 4.0 - 6.0 % Last Results POCT glycosylated hemoglobin (Hb A1C) Collection Time: 01/09/21 9:46 AM Result Value Ref Range Hemoglobin A1C POC 7.1 (A) 4.0 - 6.0 % She is accompanied to this office visit by her mother. Interval History: She has been well. No ED visits or hospitalizations. 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 No other issues with ED/hospitalizations. 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 12 hour shifts. Working 7-7:30 pm T// and every other weekend. Some days will not eat until mid afternoon. Some low blood glucose noted while working. 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 Continues to follow with Dora in pulmonary. No new medical concerns. Screening: Eye exam: August 2019 last exam. Eye exam- [facility] [place]. Advised to make an appointment Dental: 07/2020. Dietitian: 12/2018- insurance does not cover dietitian visits Annual blood work: Labs completed 05/2020. All normal. Reordered today. Foot exam: 05/2020 Transition: She plans on transition to an Adult Endo in the upcoming 3-6 months. We discussed transition today SW also met with the family to discuss the transition process. Diabetes management: No recent pump setting adjustments She feels blood glucose have been exceptionally variable. Both high and low blood glucose noted. Blood glucose have been both high and low Some lows noted at the end of her shift at work. 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 Will suspend and eat at snack to prevent lows. Discussed customize the pump/sensor settings to manage blood glucose how she needs to while at work. For example, if she would like to set low alarm higher than 70 she can so that she gets alerts in a timely fashion/in enough time to treat while at work. Also Discsused temporary basal rate to prevent low blood glucose at work. She has not been wearing the Guardian sensor. She plans to restart we (more content not included)... Normal [facility] T4,Freeon 06-11-2022 Free T4 [Mass/Vol] 1.0 ng/dL Normal 0.8-1.5 [facility] Comment on above: Order Comment: Relea se to patient->Automatic 16863&Blood Performed By: #### T 4FR #### [address] [address] TSHon 06-11-2022 TSH 1.180 uIU/mL Normal 0.300-4.200 [facility] Comment on above: Order Comment: Relea se to patient->Automatic 93904&Blood Performed By: #### T SH #### [address] [address] Vitamin D 25 OHon 06-11-2022 25 OH Vitamin D 30 ng/mL Normal 30-100 [facility] Comment on above: Order Comment: Relea se to patient->Automatic 74512&Blood Result Comment: Refe rence ranges provided by [facility] are based on Endocrine Society Guidelines: Level: Characterization < 21 ng/mL: Vitamin D deficiency 21-29 ng/mL: Suboptimal Vitamin D status 30-100 ng/mL: Optimal Vitamin D status >100 ng/mL: Potentially toxic Vitamin D effects Performed By: #### V 25DH #### [place] [address] No Panel Informationon 05-19 [id number] SEE NOTE Normal [employer] CLINICAL INFORMATION: SEE NOTE Normal [facility] [employer] CELL TUBER MACHINE: SEE NOTE Normal [employer] INTERPRETATION/RESULT : SEE NOTE Normal [employer] LMP: SEE NOTE Normal [employer] PREV. BX: SEE NOTE Normal [employer] PREV. PAP: SEE NOTE Normal [employer] SOURCE: SEE NOTE Normal [employer] STATEMENT OF ADEQUACY: SEE NOTE Normal [employer] CORONAVIRUS PCR [CCL]on 07-19 COVID 19 Result SEARCH SPECIALIST Negative Normal [facility] Comment on above: Result Comment: Nega tive for COVID19 (SARS CoV2) by PCR. This test was developed and its performance characteristics determined by [facility] [place]. This test has been authorized by FDA under an Emergency Use Authorization (EUA). This test has been validated in accordance with the FDA's Guidance Document Policy for Diagnostics Testing in Laboratories Certified to Perform High Complexity Testing under CLIA prior to Emergency use Authorization for Coronavirus Disease 2019 during the Public Health Emergency issued on October 17, 2019. [facility] [address] [place] [address] Marino Finn III, M.D. [id number] Performed By: #### 2 [id number] #### [place] [id number] COVID 19 Source SEARCH SPECIALIST Nasopharyngeal Swab Normal [facility] Comment on above: Result Comment: Darío ected on 07/29 AT 0949: Previously reported as SEARCH SPECIALIST SWAB Performed By: #### 2 [id number] #### [facility],[address] [place], [place] [id number] Coronavirus 2019on 0 COVID 19 Result SEARCH SPECIALIST Normal Negative for COVID19 (SARS CoV2) by PCR. [facility] Comment on above: Result Comment: Nega tive for This test was developed and its performance characteristics determined by [facility] [place]. This test has been authorized by FDA under an Emergency Use Authorization (EUA). This test has been validated in accordance with the FDA's Guidance Document Policy for Diagnostics Testing in Laboratories Certified to Perform High Complexity Testing under CLIA prior to Emergency use Authorization for Coronavirus Disease 2019 during the Public Health Emergency issued on October 17, 2019. COVID19 (SARS This test was developed and its performance characteristics determined by [facility] [place]. This test has been authorized by FDA under an Emergency Use Authorization (EUA). This test has been validated in accordance with the FDA's Guidance Document Policy for Diagnostics Testing in Laboratories Certified to Perform High Complexity Testing under CLIA prior to Emergency use Authorization for Coronavirus Disease 2019 during the Public Health Emergency issued on October 17, 2019. CoV2) by PCR. This test was developed and its performance characteristics determined by [facility] [place]. This test has been authorized by FDA under an Emergency Use Authorization (EUA). This test has been validated in accordance with the FDA's Guidance Document Policy for Diagnostics Testing in Laboratories Certified to Perform High Complexity Testing under CLIA prior to Emergency use Authorization for Coronavirus Disease 2019 during the Public Health Emergency issued on October 17, 2019. Coronavirus 2019on 0 COVID 19 Source SEARCH SPECIALIST Normal [facility] [place] [facility] Comment on above: Result Comment: Naso pharyngeal Corrected on 07/29 AT 0949: Previously reported as SEARCH SPECIALIST SWAB Swab Corrected on 07/29 AT 0949: Previously reported as SEARCH SPECIALIST SWAB CORONAVIRUS PCR [CCL]on REF LAB REPORT Negative Normal [facility] Comment on above: Performed By: #### 2 [id number] #### [facility],[address] [place] [address] COVID 19 Result SEARCH SPECIALIST Negative Normal [facility] Comment on above: Result Comment: Nega tive for COVID19 (SARS CoV2) by PCR. This test was developed and its performance characteristics determined by [facility] [place]. This test has been authorized by FDA under an Emergency Use Authorization (EUA). This test has been validated in accordance with the FDA's Guidance Document Policy for Diagnostics Testing in Laboratories Certified to Perform High Complexity Testing under CLIA prior to Emergency use Authorization for Coronavirus Disease 2019 during the Public Health Emergency issued on October 17, 2019. [facility] [address] [place] [address] Marino Finn III, M.D. [id number] Performed By: #### 2 [id number] #### [facility],[address] [place] [address] COVID 19 Source SEARCH SPECIALIST Nasopharyngeal Swab Normal [facility] Comment on above: Result Comment: Darío ected on 06/18 AT 1933: Previously reported as SEARCH SPECIALIST SWAB Performed By: #### [id number] #### [facility],[address] [place] [address] Coronavirus 2019on 0 COVID 19 Result SEARCH SPECIALIST Normal Negative for COVID19 (SARS CoV2) by PCR. [facility] Comment on above: Result Comment: Nega tive for This test was developed and its performance characteristics determined by [facility]'s [facility] [place]. This test has been authorized by FDA under an Emergency Use Authorization (EUA). This test has been validated in accordance with the FDA's Guidance Document Policy for Diagnostics Testing in Laboratories Certified to Perform High Complexity Testing under CLIA prior to Emergency use Authorization for Coronavirus Disease 2019 during the Public Health Emergency issued on October 17, 2019. COVID19 (SARS This test was developed and its performance characteristics determined by [facility]'s [facility] [place]. This test has been authorized by FDA under an Emergency Use Authorization (EUA). This test has been validated in accordance with the FDA's Guidance Document Policy for Diagnostics Testing in Laboratories Certified to Perform High Complexity Testing under CLIA prior to Emergency use Authorization for Coronavirus Disease 2019 during the Public Health Emergency issued on October 17, 2019. CoV2) by PCR. This test was developed and its performance characteristics determined by [facility]'s [facility] [place]. This test has been authorized by FDA under an Emergency Use Authorization (EUA). This test has been validated in accordance with the FDA's Guidance Document Policy for Diagnostics Testing in Laboratories Certified to Perform High Complexity Testing under CLIA prior to Emergency use Authorization for Coronavirus Disease 2019 during the Public Health Emergency issued on October 17, 2019. Performed By: #### C OVID #### [facility] Any.DO Reference [address] [place] [address] Coronavirus 2019on 0 COVID 19 Source SEARCH SPECIALIST Normal [facility] [place] [facility] Comment on above: Result Comment: Naso pharyngeal Corrected on 06/18 AT 1933: Previously reported as SEARCH SPECIALIST SWAB Swab Corrected on 06/18 AT 1933: Previously reported as SEARCH SPECIALIST SWAB Performed By: #### C OVID #### [facility] Reference [address] [place] [id number] CORONAVIRUS PCR [CCL]on 05-20 COVID 19 Result SEARCH SPECIALIST Negative Normal [facility] Comment on above: Result Comment: Nega tive for COVID19 (SARS CoV2) by PCR. This test was developed and its performance characteristics determined by [facility]'s [facility] [place]. This test has been authorized by FDA under an Emergency Use Authorization (EUA). This test has been validated in accordance with the FDA's Guidance Document Policy for Diagnostics Testing in Laboratories Certified to Perform High Complexity Testing under CLIA prior to Emergency use Authorization for Coronavirus Disease 2019 during the Public Health Emergency issued on October 17, 2019. [place] [id number] Marino Finn III, M.D. [id number] Performed By: #### 2 [id number] #### [address] [address] COVID 19 Source SEARCH SPECIALIST NASAL SWAB Normal [facility] Comment on above: Performed By: #### 2 [id number] #### [facility],[address] [place] [address] CORONAVIRUS PCR [CCL]on 05-19 COVID 19 Result SEARCH SPECIALIST Negative Normal [facility] Comment on above: Result Comment: Nega tive for COVID19 (SARS CoV2) by PCR. This test was developed and its performance characteristics determined by [facility]'s [facility] [place]. This test has been authorized by FDA under an Emergency Use Authorization (EUA). This test has been validated in accordance with the FDA's Guidance Document Policy for Diagnostics Testing in Laboratories Certified to Perform High Complexity Testing under CLIA prior to Emergency use Authorization for Coronavirus Disease 2019 during the Public Health Emergency issued on October 17, 2019. [facility] Any[facility]DO [address] [place] [address] Marino Finn III, M.D. [id number] Performed By: #### 2 [id number] #### [facility],[address] [place] [address] COVID 19 Source SEARCH SPECIALIST SEARCH SPECIALIST SWAB Normal [facility] Comment on above: Performed By: #### 2 [id number] #### [facility],[address] [place] [address] CORONAVIRUS PCR [CCL]on 05-19 REF LAB REPORT Negative Normal [facility] Comment on above: Performed By: #### 2 [id number] #### [facility],[address] [place] [address] COVID 19 Result SEARCH SPECIALIST Negative Normal [facility] Comment on above: Result Comment: Nega tive for COVID19 (SARS CoV2) by PCR. This test was developed and its performance characteristics determined by [facility] [place]. This test has been authorized by FDA under an Emergency Use Authorization (EUA). This test has been validated in accordance with the FDA's Guidance Document Policy for Diagnostics Testing in Laboratories Certified to Perform High Complexity Testing under CLIA prior to Emergency use Authorization for Coronavirus Disease 2019 during the Public Health Emergency issued on October 17, [place] [address] Marino Finn III, M.D. [id number] Performed By: #### 2 [id number] #### [facility],[address] [place] [address] 24168 COVID 19 Source SEARCH SPECIALIST NASAL Normal [facility] Comment on above: Performed By: #### 2 [id number] #### [facility],[address] [place] [address] CORONAVIRUS PCR [CCL]on 03-19 REF LAB REPORT Negative Normal [facility] Comment on above: Performed By: #### 2 [id number] #### [facility],[address] [place] [address] COVID 19 Result SEARCH SPECIALIST Negative Normal [facility] Comment on above: Result Comment: Nega tive for COVID19 (SARS CoV2) by PCR. This test was developed and its performance characteristics determined by [facility]'s [facility] [place]. This test has been authorized by FDA under an Emergency Use Authorization (EUA). This test has been validated in accordance with the FDA's Guidance Document Policy for Diagnostics Testing in Laboratories Certified to Perform High Complexity Testing under CLIA prior to Emergency use Authorization for Coronavirus Disease 2019 during the Public Health Emergency issued on October 17, 2019. [facility] [address] [place] [id number] Marino Finn III, M.D. [id number] Performed By: #### 2 [id number] #### [facility],[address] [place], [place] [id number] COVID 19 Source SEARCH SPECIALIST SEARCH SPECIALIST SWAB Normal [facility] Comment on above: Performed By: #### 2 [id number] #### [facility],[address] [place], [place] [id number] CORONAVIRUS PCR [CCL]on COVID 19 Result SEARCH SPECIALIST Negative Normal [facility] Comment on above: Result Comment: Nega tive for COVID19 (SARS CoV2) by PCR. This test was developed and its performance characteristics determined by [facility]'s [facility] [place]. This test has been authorized by FDA under an Emergency Use Authorization (EUA). This test has been validated in accordance with the FDA's Guidance Document Policy for Diagnostics Testing in Laboratories Certified to Perform High Complexity Testing under CLIA prior to Emergency use Authorization for Coronavirus Disease 2019 during the Public Health Emergency issued on October 17, 2019. [facility] Any[facility]DO [address] [place] [address] Marino Finn III, M.D. [id number] Performed By: #### 2 [id number] #### [facility],[address] [place] [address] COVID 19 Source SEARCH SPECIALIST Nasopharyngeal Swab Normal [facility] Comment on above: Performed By: #### 2 [id number] #### [facility],[address] [place] [address] Coronavirus 2019on 0 COVID 19 Result SEARCH SPECIALIST Normal Negative for COVID19 (SARS CoV2) by PCR. [facility] Comment on above: Result Comment: Nega tive for This test was developed and its performance characteristics determined by [facility]'s [facility] [place]. This test has been authorized by FDA under an Emergency Use Authorization (EUA). This test has been validated in accordance with the FDA's Guidance Document Policy for Diagnostics Testing in Laboratories Certified to Perform High Complexity Testing under CLIA prior to Emergency use Authorization for Coronavirus Disease 2019 during the Public Health Emergency issued on October 17, 2019. COVID19 (SARS This test was developed and its performance characteristics determined by [facility]'s [facility] [place]. This test has been authorized by FDA under an Emergency Use Authorization (EUA). This test has been validated in accordance with the FDA's Guidance Document Policy for Diagnostics Testing in Laboratories Certified to Perform High Complexity Testing under CLIA prior to Emergency use Authorization for Coronavirus Disease 2019 during the Public Health Emergency issued on October 17, 2019. CoV2) by PCR. This test was developed and its performance characteristics determined by [facility]'s [facility] [place]. This test has been authorized by FDA under an Emergency Use Authorization (EUA). This test has been validated in accordance with the FDA's Guidance Document Policy for Diagnostics Testing in Laboratories Certified to Perform High Complexity Testing under CLIA prior to Emergency use Authorization for Coronavirus Disease 2019 during the Public Health Emergency issued on October 17, 2019. COVID 19 Source SEARCH SPECIALIST SEARCH SPECIALIST Normal [facility] [place] [facility] Laboratory - Microbiology an d Antimicrobial susceptibilityon 03-18-2020 SARS-CoV-2 (COVID-19) RNA IRLANDA+probe Ql (Unsp spec) Nasopharyngeal Swab Normal [facility].; [facility], [facility]. SARS-CoV-2 (COVID-19) RNA IRLANDA+probe Ql (Unsp spec) Negative Normal [facility].; [facility]. NOVEL CORONAVIRUS (COVID-19) on 02-08-2020 SARS-COV-2 Not Detected Normal Not Detected [facility] ealth System Comment on above: Order Comment: This assay was performed by Nucleic Acid Amplification (IRLANDA) on the [employer]??? [place]??? System ([employer] [place], [place]) using Fine Grader Mediated Amplification (TMA) technology. This test was developed, and its performance characteristics determined by [facility] Any.DO. The Apt[employer]??? SARS-CoV-2 assay is for use only under Emergency Use Authorization (EUA) in the US laboratories certified under the Clinical Laboratory Improvement Amendments of 1988 (CLIA), 42 U.S.C. ???263a, to perform high complexity tests. Performed By: #### C OVID19 #### [facility] [address] [place] [address], [id number] Laboratory - Microbiology an d Antimicrobial susceptibilityon 03-18-2019 Bacteria identified Aer cx Nom (Nose) SEE NOTE Normal [facility].; [facility] - Specimen inform ationon 03-18-2019 Specimen source Nom (Unsp spec) RESPIRATORY-NASAL Normal [employer] [facility] - Microbiology an d Antimicrobial susceptibilityon 03-18-2018 VZV IgG IA Qn (S) VARICELLA ZOSTER AB (IGG) [QUEST] Normal [employer].; [employer]. Laboratory - Chemistry and C hemistry - challengeon 03-07-2017 Albumin [Mass/Vol] 4.7 g/dL Abnormal 2.9 - 4.2 g/dL [facility].; [employer]. Albumin [Mass/Vol] 1.6 g/dL Normal 0.9 - 1.6 [facility].; [employer]. ALP [Catalytic activity/Vol] 95 U/L Normal 47 - 119 U/L [facility].; [employer]. ALT [Catalytic activity/Vol] 6 U/L Abnormal 8 - 35 U/L [employer].; [employer]. Anion gap [Moles/Vol] 13 mmol/L Normal 10 - 2 0 mmol/L [facility].; [employer]. AST [Catalytic activity/Vol] 9 U/L Normal 0 - 30 U/L [facility].; [facility], [facility] Bilirubin [Mass/Vol] 0.3 mg/dL Normal 0.0 - 1 .5 mg/dL [facility].; [facility], [facility]. Bilirubin Ql (U) Negative Normal [facility]; [facility], [facility] Calcium [Mass/Vol] 9.6 mg/dL Normal 8.6 - 9.8 mg/dL [facility]; [facility] Chloride [Moles/Vol] 102 mmol/L Normal 98 - 10 7 mmol/L [facility]; [facility], [facility] CO2 [Moles/Vol] 25.8 mmol/L Normal 21.0 - 31.0 mmol/L [facility]; [facility], [facility] Comprehensive metabolic 2000 panel CMP with eGFR Normal [facility]; [facility], [facility] Creatinine [Mass/Vol] 0.8 mg/dL Normal 0.8 - 1.2 mg/dL [facility]; [facility], [facility]. CRP [Mass/Vol] 2.10 mg/dL Abnormal 0.00 - 1.00 mg/dL [facility].; [facility], [facility]. GFR/1.73 sq M.predicted among blacks MDRD (S/P/Bld) [Vol rate/Area] mL/min/{1.73_m2} Normal 60 - 999 {ML/MINUTE} [facility].; [facility], [facility]. GFR/1.73 sq M.predicted MDRD (S/P/Bld) [Vol rate/Area] mL/min/{1.73_m2} Normal 60 - 999 {ML/MINUTE} [facility], [facility].; [facility], [facility]. Globulin (S) [Mass/Vol] 3.0 g/dL Normal 1.5 - 3.8 g/dL [facility]; [facility], [facility] Glucose [Mass/Vol] 237 mg/dL Abnormal 74 - 106 mg/dL [facility].; [facility], [facility] Ketones Ql (U) Negative Normal [facility]; [facility] pH (U) 5.5 [pH] Normal [facility]; [facility] Potassium [Moles/Vol] 4.3 mmol/L Normal 3.5 - 5.1 mmol/L [facility]; [facility] Protein [Mass/Vol] 7.7 g/dL Normal 5.7 - 8.0 g/dL [facility]; [facility] Sodium [Moles/Vol] 136 mmol/L Normal 136 - 145 mmol/L [facility]; [facility] Specific gravity (U) [Rel density] 1.020 Normal [facility]; [facility] Urea nitrogen [Mass/Vol] 15 mg/dL Normal 6 - 20 mg/dL [facility]; [facility] Urea nitrogen/Creatinine [Mass ratio] 19 {ratio} Normal 0 - 30 {ratio} [facility]; [facility] Urobilinogen Qn (U) 0.2 mg/dL [facility]; [facility] Laboratory - Hematology and Cell countson 03-07-2017 Basophils (Bld) [#/Vol] 0.00 {3/UL} Normal 0.00 - 0.10 {3/UL} [facility]; [facility] Basophils/100 WBC (Bld) 0.6 % Normal 0.0 - 2.0 % [facility]; [place] [facility] [facility]. CBC W Auto Differential panel (Bld) CBC Normal [facility]; [facility] Eosinophils (Bld) [#/Vol] 0.50 {3/UL} Normal 0.00 - 0.50 {3/UL} [facility]; [place] [employer] [facility], [facility] Eosinophils/100 WBC (Bld) 6.1 % Normal 0.0 - 7.0 % [facility]; [facility] Erythrocyte distribution width (RBC) [Ratio] 13.7 % Normal 12.0 - 15.6 % [facility], [facility].; [facility], [facility]. Hematocrit (Bld) [Volume fraction] 40.3 % Normal 34.0 - 46.0 % [facility], [facility].; [facility], [facility]. Hemoglobin (Bld) [Mass/Vol] 13.8 g/dL Normal 12.0 - 16.0 g/dL [facility], [facility].; [place] [employer]. Hemoglobin Ql (U) Negative Normal [facility].; [facility], [facility]. Lymphocytes (Bld) [#/Vol] 1.20 {3/UL} Normal 0.80 - 2.80 {3/UL} [place] [employer], [facility].; [place] [employer], [employer]. Lymphocytes/100 WBC (Bld) 14.2 % Abnormal 20.0 - 45.0 % [place] [employer] [facility], [facility].; [employer], [employer]. MCH (RBC) [Entitic mass] 28 pg Normal 27 - 33 pg [place] [employer] [facility].; [employer] MCHC (RBC) [Mass/Vol] 34 {X10_3} Normal 32 - 3 6 {X10_3} [place] [employer], [employer].; [employer] MCV (RBC) [Entitic vol] 81 fL Normal 80 - 99 fL [place] [employer] [facility].; [employer] Monocytes (Bld) [#/Vol] 0.30 {3/UL} Normal 0.20 - 1.00 {3/UL} [employer] Monocytes/100 WBC (Bld) 3.8 % Normal 0.0 - 10.0 % [place] [employer], [facility].; [employer], [employer]. Morphology Siddhartha (Bld) [Interp] N/A Normal [place] [employer] [facility].; [employer] Neutrophils (Bld) [#/Vol] 6.60 {3/UL} Normal 1.50 - 7.10 {3/UL} [employer] Neutrophils/100 WBC (Bld) 75.3 % Normal 46.0 - 76.0 % [place] [facility].; [employer], [employer]. Platelet mean volume (Bld) [Entitic vol] 8.4 fL Normal 6.6 - 10.5 fL [facility] [employer].; [employer], [employer]. Platelets (Bld) [#/Vol] 295 {3/UL} Normal 150 - 450 {3/UL} [facility] [employer], [employer]. RBC (Bld) [#/Vol] 4.98 {6/UL} Normal 4.10 - 5.3 0 {6/UL} [employer].; [employer], [employer]. WBC (Bld) [#/Vol] 8.8 {3/UL} Normal 4.5 - 10.8 {3/UL} [employer].; [employer], [employer]. Laboratory - Specimen inform ationon 03-07-2017 Appearance (U) clear Normal [facility] [employer].; [employer]. Color (U) yellow Normal [place] [facility].; [facility]. Laboratory - Urinalysison Glucose Test strip (U) [Mass/Vol] 500 mg/dL Abnormal [place] [employer] [facility].; [employer], [employer]. Leukocyte esterase Test strip Ql (U) Negative Normal [place] [facility].; [employer], [employer]. Nitrite Ql (U) Negative Normal [facility] [employer].; [employer]. Protein Ql (U) Negative Normal [facility] [employer].; [employer]. No Panel Informationon 03-07 AGE 16 {years} Normal [place] [facility].; [employer]. MANUAL DIFF N/A Normal [place] [facility].; [employer]. Laboratory - Chemistry and C hemistry - challengeon 02-11-2017 Bilirubin Ql (U) Negative [facility].; [employer], [employer]. Ketones Ql (U) Negative Normal [facility] [employer].; [employer] pH (U) 5.0 [pH] Abnormal [facility].; [facility]. Specific gravity (U) [Rel density] 1.020 Normal [facility].; [place] [facility] [facility] Urobilinogen Qn (U) 0.2 mg/dL Normal [facility]; [place] [employer] [facility] Laboratory - Hematology and Cell countson 02-11-2017 Hemoglobin Ql (U) moderate Abnormal [facility].; [facility]. Laboratory - Specimen inform ationon 02-11-2017 Appearance (U) cloudy Abnormal [facility].; [place] [employer] Color (U) yellow Normal [facility]; [employer]. Laboratory - Urinalysison Glucose Test strip (U) [Mass/Vol] 100 mg/dL Normal [facility]; [place] [employer] Leukocyte esterase Test strip Ql (U) moderate Abnormal [facility].; [facility]. Nitrite Ql (U) Positive Abnormal [facility]; [place] [employer] [facility] Protein Ql (U) 100 mg/dL Abnormal [facility].; [facility]. Laboratory - Microbiology an d Antimicrobial susceptibilityon 11-05-2016 Bacteria identified Cx Nom (Wound) CULTURE WOUND Normal [facility]; [place] [employer] Laboratory - Microbiology an d Antimicrobial susceptibilityon 04-23-2015 S. pyogenes Ag EIA Ql (Throat) Negative Normal [facility]; [facility] Vital Signs Date Time Vital Sign Value Performing Clinician Facility 07-03-2024 08:49-0500 Body height 148.59 cm [facility]; [place] [employer] [facility] 07-03-2024 08:49-0500 Body mass index (BMI) [Ratio] 28.97 kg/m2 [facility]; [place] [employer] [facility]. 07-03-2024 08:49-0500 Body surface area Derived from formula 1.58 m2 [facility]; [place] [employer] [facility] 07-03-2024 08:49-0500 Body weight 63.96 kg [facility], [facility].; [facility], [facility]. 07-03-2024 08:49-0500 Diastolic blood pressure 84 mm[Hg] No Gomez HIDE WORKER [facility], [facility].; [facility], [facility]. Comment on above: Patient Position: Sitting; Cuff Location : Left Arm; Cuff Size: Standard 07-03-2024 08:49-0500 Heart rate 88 /min No Gomez HIDE WORKER [facility], [facility].; [facility], [employer]. Comment on above: Pattern: Regular 07-03-2024 08:49-0500 Systolic blood pressure 128 mm[Hg] Nojuan Gomez HIDE WORKER [facility], [facility].; [place] [employer] [facility] Comment on above: Patient Position: Sitting; Cuff Location : Left Arm; Cuff Size: Standard 01-03-2024 08:24-0400 Body height 148.59 cm Pawel Jones HIDE WORKER [facility], [facility].; [facility], [facility]. 01-03-2024 08:24-0400 Body mass index (BMI) [Ratio] 26.3 kg/m2 Pawel Robert HIDE WORKER [facility], [facility].; [place] [employer] [facility], [facility]. 01-03-2024 08:24-0400 Body surface area Derived from formula 1.52 m2 Pawel Robert HIDE WORKER [facility], [facility].; [place] [employer] [facility], [facility]. 01-03-2024 08:24-0400 Body weight 58.06 kg Pawel Robert HIDE WORKER [facility], [facility].; [facility], [facility]. 01-03-2024 08:24-0400 Diastolic blood pressure 77 mm[Hg] Pawel Jones LPN [facility], [facility].; [place] [employer] [facility], [employer]. Comment on above: Patient Position: Sitting; Cuff Location : Left Arm; Cuff Size: Standard 01-03-2024 08:24-0400 Heart rate 86 /min Pawel Robertmoni IZAGUIRRE [facility], [facility].; [place] [employer] [facility], [employer]. Comment on above: Pattern: Regular 01-03-2024 08:24-0400 Systolic blood pressure 118 mm[Hg] Pawel Robertmoni IZAGUIRRE [facility], [facility].; [place] [employer] [facility], [employer]. Comment on above: Patient Position: Sitting; Cuff Location : Left Arm; Cuff Size: Standard 12-06-2023 08:26-0400 Body height 148.[address] [facility], [facility].; [facility], [facility]. 12-06-2023 08:26-0400 Body mass index (BMI) [Ratio] 26.91 kg/m2 [facility], [facility]. 12-06-2023 08:26-0400 Body surface area Derived from formula 1.53 m2 [facility], [facility].; [facility], [facility]. 12-06-2023 08:26-0400 Body weight 59.42 kg [facility], [facility].; [facility], [facility]. 12-06-2023 08:26-0400 Diastolic blood pressure 83 mm[Hg] No Gomez [facility], [facility].; [place] [employer] Comment on above: Patient Position: Sitting; Cuff Location : Left Arm; Cuff Size: Standard 12-06-2023 08:26-0400 Heart rate 111 /min No Gmoez [facility], [facility].; [place] [employer] [facility], [employer]. Comment on above: Pattern: Regular 12-06-2023 08:26-0400 Systolic blood pressure 117 mm[Hg] No Gomez [facility] [place] [employer] Comment on above: Patient Position: Sitting; Cuff Location : Left Arm; Cuff Size: Standard 05-19-2021 10:20-0400 Body height 148.59 cm Veena Knott HIDE WORKER [facility], [facility].; [place] [employer] [facility], [facility]. 05-19-2021 10:20-0400 Body mass index (BMI) [Ratio] 25.06 kg/m2 Veena Baires Hedy [facility], [facility].; [place] [employer] [facility], [facility]. 05-19-2021 10:20-0400 Body surface area Derived from formula 1.49 m[address] [facility], [facility].; [place] [employer] [facility], [facility]. 05-19-2021 10:20-0400 Body weight 55.34 kg Veena Knott LPN [facility], [facility].; [employer]. 05-19-2021 10:20-0400 Diastolic blood pressure 75 mm[Hg] Veena Knott LPN [facility], [facility].; [employer]. Comment on above: Patient Position: Sitting; Cuff Location : Left Arm; Cuff Size: Standard 05-19-2021 10:20-0400 Heart rate 99 /min Veena Knott LPN [facility], [facility].; [employer]. Comment on above: Pattern: Regular 05-19-2021 10:20-0400 Systolic blood pressure 118 mm[Hg] Veena Knott LPN [place] [employer] [facility], [facility].; [employer]. Comment on above: Patient Position: Sitting; Cuff Location : Left Arm; Cuff Size: Standard 03-18-2020 11:39-0400 Body height 148.59 cm Sobia Herron RN [facility], [facility].; [employer]. 03-18-2020 11:39-0400 Body mass index (BMI) [Ratio] 25.89 kg/m2 Sobia Herron RN [facility], [employer].; [employer] 03-18-2020 11:39-0400 Body surface area Derived from formula 1.51 m2 Sobia Herron RN [place] [employer] [facility], [facility].; [employer]. 03-18-2020 11:39-0400 Body temperature 100.3 [degF] Sobia Herron RN [place] [facility] [facility].; [employer]. Comment on above: Method: Tympanic 03-18-2020 11:39-0400 Body weight 57.15 kg Sobia Herron RN [place] [employer] [facility], [employer].; [employer]. 03-18-2020 11:39-0400 Inhaled oxygen concentration 21 % Sobia Herron RN [place] [employer] [facility].; [employer]. Comment on above: Room air 03-18-2020 11:39-0400 SaO2% (BldA) [Mass fraction] 97 % Sobia Herron RN [facility].; [facility] 09-12-2019 08:39-0500 Body height 148.59 cm Kristin Frost LPN [facility].; [facility]. 09-12-2019 08:39-0500 Body mass index (BMI) [Ratio] 25.47 kg/m2 Kristin Frost HIDE WORKER [facility], [facility].; [facility]. 09-12-2019 08:39-0500 Body surface area Derived from formula 1.5 m2 Kristin Frost HIDE WORKER [facility].; [facility], [facility]. 09-12-2019 08:39-0500 Body temperature 97.4 [degF] Kristin Frost [facility], [facility].; [place] [facility]. Comment on above: Method: Tympanic 09-12-2019 08:39-0500 Body weight 56.25 kg Kristin Frost LPN [facility].; [facility], [facility]. 09-12-2019 08:39-0500 Diastolic blood pressure 82 mm[Hg] Kristin Frost HIDE WORKER [facility].; [place] [employer] [facility], [employer]. Comment on above: Patient Position: Sitting; Cuff Location : Left Arm; Cuff Size: Large 09-12-2019 08:39-0500 Heart rate 99 /min Kristin Frost LPN [facility].; [place] [facility] [facility]. Comment on above: Pattern: Regular 09-12-2019 08:39-0500 Inhaled oxygen concentration 21 % FalguniMena Frost [facility].; [place] [facility] [facility]. Comment on above: Room air 09-12-2019 08:39-0500 SaO2% (BldA) [Mass fraction] 95 % FalguniMena Frost [facility], [facility].; [place] [employer] [facility], [employer]. 09-12-2019 08:39-0500 Systolic blood pressure 120 mm[Hg] Kristin Frost HIDE WORKER [facility], [facility].; [place] [employer]. Comment on above: Patient Position: Sitting; Cuff Location : Left Arm; Cuff Size: Large 09-01-2019 11:37-0500 Body height 148.59 cm Kristin Frost HIDE WORKER [facility] [place] [employer] [facility], [employer]. 09-01-2019 11:37-0500 Body mass index (BMI) [Ratio] 25.47 kg/m2 Kristin Frost [facility] [employer] 09-01-2019 11:37-0500 Body surface area Derived from formula 1.[address] [facility] [employer], [employer]. 09-01-2019 11:37-0500 Body temperature 99.2 [degF] Kristin Frost [facility] [employer], [employer]. Comment on above: Method: Tympanic 09-01-2019 11:37-0500 Body weight 56.[address] [facility] [employer], [employer]. 09-01-2019 11:37-0500 Diastolic blood pressure 79 mm[Hg] Kristin Frost [facility] [employer], [employer]. Comment on above: Patient Position: Sitting; Cuff Location : Left Arm; Cuff Size: Large 09-01-2019 11:37-0500 Heart rate 96 /min Kristin Frost HIDE WORKER [facility] [employer]. Comment on above: Pattern: Regular 09-01-2019 11:37-0500 Inhaled oxygen concentration 21 % Kristin Frost [facility] [employer]. Comment on above: Room air 09-01-2019 11:37-0500 SaO2% (BldA) [Mass fraction] 98 % Kristin Frost [facility] [employer], [employer]. 09-01-2019 11:37-0500 Systolic blood pressure 115 mm[Hg] Kristin Frost [facility] [employer]. Comment on above: Patient Position: Sitting; Cuff Location : Left Arm; Cuff Size: Large 03-18-2019 14:24-0400 Body height 148.59 cm [facility] [employer]. 03-18-2019 14:24-0400 Body mass index (BMI) [Percentile] Per age and sex 77 % Kenna Day [facility].; [employer]. 03-18-2019 14:24-0400 Body mass index (BMI) [Ratio] 24.65 kg/m2 Kenna Day [facility].; [employer]. 03-18-2019 14:24-0400 Body surface area Derived from formula 1.48 m2 Kenna Day [facility].; [employer]. 03-18-2019 14:24-0400 Body temperature 98.5 [degF] Kenna Day [facility].; [employer]. Comment on above: Method: Tympanic 03-18-2019 14:24-0400 Body weight 54.43 kg Kenna Day [facility].; [employer]. 03-18-2019 14:24-0400 Diastolic blood pressure 69 mm[Hg] Kenna Day [facility] [employer]. Comment on above: Patient Position: Sitting; Cuff Location : Left Arm; Cuff Size: Standard 03-18-2019 14:24-0400 Heart rate 95 /min Kenna Day [facility].; [employer]. Comment on above: Pattern: Regular 03-18-2019 14:24-0400 Systolic blood pressure 109 mm[Hg] Kenna Day [facility] [employer]. Comment on above: Patient Position: Sitting; Cuff Location : Left Arm; Cuff Size: Standard 01-09-2019 08:40-0400 Body height 148.59 cm Sobia Herron RN [employer].; [employer]. 01-09-2019 08:40-0400 Body mass index (BMI) [Percentile] Per age and sex 76 % Sobia Herron RN [employer].; [employer]. 01-09-2019 08:40-0400 Body mass index (BMI) [Ratio] 24.45 kg/m2 Sobia Herron RN [employer].; [employer]. 01-09-2019 08:40-0400 Body surface area Derived from formula 1.47 m2 Sobia Herron RN [place] [employer].; [employer]. 01-09-2019 08:40-0400 Body temperature 98.3 [degF] Sobia Herron RN [employer].; [employer]. Comment on above: Method: Tympanic 01-09-2019 08:40-0400 Body weight 53.98 kg Sobia Herron RN [employer].; [employer]. 01-09-2019 08:40-0400 Diastolic blood pressure 66 mm[Hg] Sobia Herron RN [employer].; [employer]. Comment on above: Patient Position: Sitting; Cuff Location : Left Arm; Cuff Size: Standard 01-09-2019 08:40-0400 Heart rate 82 /min Sobia Herron RN [employer].; [employer]. Comment on above: Pattern: Regular 01-09-2019 08:40-0400 Systolic blood pressure 102 mm[Hg] Sobia Herron RN [employer].; [employer]. Comment on above: Patient Position: Sitting; Cuff Location : Left Arm; Cuff Size: Standard 01-02-2019 07:59-0400 Body height 148.59 cm Maryana Flores LPN [employer].; [employer]. 01-02-2019 07:59-0400 Body mass index (BMI) [Percentile] Per age and sex 76 % Maryana Flores LPN [employer].; [employer]. 01-02-2019 07:59-0400 Body mass index (BMI) [Ratio] 24.45 kg/m2 Maryana Flores LPN [employer].; [employer]. 01-02-2019 07:59-0400 Body surface area Derived from formula 1.47 m2 Maryana Flores HIDE WORKER [employer] 01-02-2019 07:59-0400 Body temperature 98.9 [degF] Maryana Flores [facility] [employer] Comment on above: Method: Tympanic 01-02-2019 07:59-0400 Body weight 53.98 kg Maryana Buckleyrobinson [facility] [employer] 01-02-2019 07:59-0400 Diastolic blood pressure 80 mm[Hg] Maryana Buckleyrobinson [facility] [employer] Comment on above: Patient Position: Sitting; Cuff Location : Left Arm; Cuff Size: Standard 01-02-2019 07:59-0400 Heart rate 93 /min Maryana Buckleyrobinson [facility] [employer] Comment on above: Pattern: Regular 01-02-2019 07:59-0400 Systolic blood pressure 120 mm[Hg] Maryana Flores [facility] [employer] Comment on above: Patient Position: Sitting; Cuff Location : Left Arm; Cuff Size: Standard 03-18-2018 14:45-0400 Body height 148.59 cm Kristin Frost HIDE WORKER [place] [employer] [facility], [facility].; [employer] 03-18-2018 14:45-0400 Body mass index (BMI) [Percentile] Per age and sex 85 % Falguni Margot [facility] [employer] [facility], [facility].; [employer] 03-18-2018 14:45-0400 Body mass index (BMI) [Ratio] 26.09 kg/m2 [facility] [place] [facility] [employer] 03-18-2018 14:45-0400 Body surface area Derived from formula 1.51 m2 Falguni [place] HIDE WORKER [facility] [employer] 03-18-2018 14:45-0400 Body weight 57.61 kg Falguni Margot [facility] [employer]. 03-18-2018 14:45-0400 Diastolic blood pressure 77 mm[Hg] Kristin Frost HIDE WORKER [facility], [facility].; [employer]. Comment on above: Patient Position: Sitting; Cuff Location : Left Arm; Cuff Size: Large 03-18-2018 14:45-0400 Heart rate 87 /min Kristin Frost HIDE WORKER [place] [employer] [facility], [facility] [employer]. Comment on above: Pattern: Regular 03-18-2018 14:45-0400 Systolic blood pressure 116 mm[Hg] Kristin Frost HIDE WORKER [facility] [employer]. Comment on above: Patient Position: Sitting; Cuff Location : Left Arm; Cuff Size: Large 05-28-2017 09:36-0400 Body temperature 97.6 [degF] Lauren Fowler LPN [place] [employer]. 05-28-2017 09:36-0400 Body weight 53.52 kg Lauren Fowler LPN [place] [employer], [employer].; [employer]. 05-28-2017 09:36-0400 Diastolic blood pressure 75 mm[Hg] Lauren Fowler LPN [employer], [employer].; [employer]. Comment on above: Patient Position: Sitting; Cuff Location : Left Arm; Cuff Size: Standard 05-28-2017 09:36-0400 Heart rate 91 /min Lauren Fowler LPN [facility], [employer].; [employer]. Comment on above: Pattern: Regular 05-28-2017 09:36-0400 Inhaled oxygen concentration 21 % Lauren Fowler LPN [facility] [employer]. Comment on above: Room air 05-28-2017 09:36-0400 SaO2% (BldA) [Mass fraction] 99 % Lauren Fowler LPN [facility], [employer].; [employer]. 05-28-2017 09:36-0400 Systolic blood pressure 116 mm[Hg] Lauren Fowler LPN [employer], [employer].; [employer]. Comment on above: Patient Position: Sitting; Cuff Location : Left Arm; Cuff Size: Standard 05-16-2017 14:05-0400 Body height 147.32 cm Neville Waggoner (iikobelae) [employer].; [employer]. 05-16-2017 14:05-0400 Body mass index (BMI) [Percentile] Per age and sex 80 % Nevilledariel Waggoner (Scribe) [employer]. 05-16-2017 14:05-0400 Body mass index (BMI) [Ratio] 24.66 kg/m2 Neville Waggoner (iikoibe) [employer]. 05-16-2017 14:05-0400 Body surface area Derived from formula 1.46 m2 Nevilledariel Waggoner ([employer]) [employer].; [employer]. 05-16-2017 14:05-0400 Body temperature 101.9 [degF] Nevilledariel Waggoner ([employer]) [employer]. 05-16-2017 14:05-0400 Body weight 53.52 kg Neville Waggoner (iikoibe) [employer].; [employer]. 05-16-2017 14:05-0400 Diastolic blood pressure 75 mm[Hg] Neville Waggoner (iikoibe) [employer]. Comment on above: Patient Position: Sitting; Cuff Location : Left Arm; Cuff Size: Standard 05-16-2017 14:05-0400 Heart rate 144 /min Neville Edilson ([place]) [employer]. Comment on above: Pattern: Regular 05-16-2017 14:05-0400 Inhaled oxygen concentration 21 % Neville Waggoner (iikoibe) [employer]. Comment on above: Room air 05-16-2017 14:05-0400 SaO2% (BldA) [Mass fraction] 90 % Neville Edilson (iikoibe) [employer].; [employer]. 05-16-2017 14:05-0400 Systolic blood pressure 127 mm[Hg] Neville Waggoner (Scribe) [employer].; [employer]. Comment on above: Patient Position: Sitting; Cuff Location : Left Arm; Cuff Size: Standard 03-07-2017 08:47-0400 Body temperature 98.1 [degF] Maryana Flores LPN [place] [facility].; [employer]. Comment on above: Method: Tympanic 03-07-2017 08:47-0400 Body weight 51.71 kg Maryana Flores LPN [employer].; [employer]. 02-11-2017 09:08-0400 Body height 147.32 cm Sobia Herron RN [employer].; [employer]. 02-11-2017 09:08-0400 Body mass index (BMI) [Percentile] Per age and sex 76 % Sobia Herron RN [employer].; [employer]. 02-11-2017 09:08-0400 Body mass index (BMI) [Ratio] 23.83 kg/m2 Sobia Herron RN [employer].; [employer]. 02-11-2017 09:08-0400 Body surface area Derived from formula 1.43 m2 Sobia Herron RN [employer].; [employer]. 02-11-2017 09:08-0400 Body temperature 99.5 [degF] Sobia Herron RN [employer].; [employer]. Comment on above: Method: Tympanic 02-11-2017 09:08-0400 Body weight 51.71 kg Sobia Herron RN [employer].; [employer]. 02-11-2017 09:08-0400 Diastolic blood pressure 72 mm[Hg] Sobia Herron RN [employer].; [employer]. Comment on above: Patient Position: Sitting; Cuff Location : Right Arm; Cuff Size: Standard 02-11-2017 09:08-0400 Heart rate 111 /min Sobia Herron RN [employer].; [employer]. Comment on above: Pattern: Regular 02-11-2017 09:08-0400 Systolic blood pressure 117 mm[Hg] Sobia Herron RN [facility], [facility].; [employer], [employer]. Comment on above: Patient Position: Sitting; Cuff Location : Right Arm; Cuff Size: Standard 12-14-2016 11:[id number] Body height 144.78 cm Neilee L Vess HIDE WORKER [facility] [employer] 12-14-2016 11:07-0400 Body mass index (BMI) [Percentile] Per age and sex 80 % Neilee L Vess HIDE WORKER [facility], [facility] [employer], [employer]. 12-14-2016 11:07-0400 Body mass index (BMI) [Ratio] 24.45 kg/m2 Neilee L Vess HIDE WORKER [facility], [facility] [employer], [employer]. 12-14-2016 [id number] Body surface area Derived from formula 1.41 m2 Neilee L Vess HIDE WORKER [place] [employer] [facility], [facility].; [employer] 12-14-2016 11:07-0400 Body temperature 98.9 [degF] Msilee L Vess HIDE WORKER [place] [employer] [facility], [facility].; [employer], [employer]. Comment on above: Method: Tympanic 12-14-2016 [id number] Body weight 51.26 kg Neilee L Vess HIDE WORKER [place] [employer] [facility], [facility].; [employer], [employer]. 03-15-2016 10:46-0400 Body height 144.78 cm Jolynn K Mutersbaugh HIDE WORKER [place] [employer] [facility], [facility].; [employer], [employer]. 03-15-2016 10:46-0400 Body mass index (BMI) [Percentile] Per age and sex 70 % Jolynn K Mutersbaugh HIDE WORKER [place] [employer] [facility], [facility].; [employer], [employer]. 03-15-2016 10:46-0400 Body mass index (BMI) [Ratio] 22.72 kg/m2 Jolynn K Mutersbaugh HIDE WORKER [place] [employer], [employer]. 03-15-2016 10:46-0400 Body surface area Derived from formula 1.37 m2 Jolynn K Mutersbaugh HIDE WORKER [employer], [facility].; Mad Mimi [facility]. 03-15-2016 10:46-0400 Body weight 47.63 kg Jolynn Alfonso Hernandezbaugh HIDE WORKER [place] [employer], [facility].; [employer], [employer]. 03-15-2016 10:46-0400 Diastolic blood pressure 67 mm[Hg] Jolynn Alfonso Mutersbaugh HIDE WORKER [place] [employer], [facility].; [employer]. Comment on above: Patient Position: Sitting; Cuff Location : Left Arm; Cuff Size: Standard 03-15-2016 10:46-0400 Heart rate 69 /min Jolynn Alfonso Hernandezbaugh HIDE WORKER [place] [employer] [facility], [employer].; [employer]. Comment on above: Pattern: Regular 03-15-2016 10:46-0400 Systolic blood pressure 102 mm[Hg] Jolynn Alfonso Mutersbaugh HIDE WORKER [place] [employer], [facility].; [employer]. Comment on above: Patient Position: Sitting; Cuff Location : Left Arm; Cuff Size: Standard 04-23-2015 09:59-0400 Body height 144.78 cm Tomie Dasia Parks [facility] [employer] [facility], [facility].; [employer]. 04-23-2015 09:59-0400 Body mass index (BMI) [Percentile] Per age and sex 77 % Neleloe Dasia Vess HIDE WORKER [place] [employer] [facility], [facility].; [employer]. 04-23-2015 09:59-0400 Body mass index (BMI) [Ratio] 23.15 kg/m2 Neleloe L Vess HIDE WORKER [place] [employer] [facility], [facility].; [employer] 04-23-2015 09:59-0400 Body surface area Derived from formula 1.38 m2 Hello Agentleloe L Kasey HIDE WORKER [employer], [facility].; [employer]. 04-23-2015 09:59-0400 Body temperature 99.4 [degF] Xiomarailee L Kasey HIDE WORKER [place] [employer], [facility].; [employer]. Comment on above: Method: Tympanic 04-23-2015 09:59-0400 Body weight 48.54 kg Tomie Dasia Parks HIDE WORKER [place] [employer] [facility], [employer].; [employer]. 03-16-2015 07:54-0400 Body height 147.32 cm Jolynn Alfonso Hernandezbaugh [facility], [facility].; [employer], [employer]. 03-16-2015 07:54-0400 Body mass index (BMI) [Percentile] Per age and sex 75 % Jolynn Alfonso Mutersbaugh HIDE WORKER [facility], [facility] [employer]. 03-16-2015 07:54-0400 Body mass index (BMI) [Ratio] 22.78 kg/m2 Jolynn Alfonso Mutersbaugh [facility] [employer] [facility], [facility].; [employer] [facility]. 03-16-2015 07:54-0400 Body surface area Derived from formula 1.41 m2 Jolynn Alfonso Hernandezbaugh [facility] [facility], [facility].; [employer], [employer]IF[employer]. 03-16-2015 07:54-0400 Body weight 49.44 kg Jolynn Alfonso Hernandezbaugh [facility] [employer], [facility].; [employer]. 03-16-2015 07:54-0400 Diastolic blood pressure 65 mm[Hg] Jolynn Alfonso Mutersbaugh [facility] [employer], [facility].; [employer]. Comment on above: Patient Position: Sitting; Cuff Location : Left Arm; Cuff Size: Standard 03-16-2015 07:54-0400 Heart rate 74 /min Jolynn Alfonso Hernandezbaugh HIDE WORKER [place] [employer] [facility], [facility].; [employer]. Comment on above: Pattern: Regular 03-16-2015 07:54-0400 Systolic blood pressure 103 mm[Hg] Jolynn Alfonso Mutersbaugh HIDE WORKER [place] [employer] [facility], [facility].; [employer]. Comment on above: Patient Position: Sitting; Cuff Location : Left Arm; Cuff Size: Standard 10-14-2013 15:28-0500 Body height 143.76 cm Maryana Flores LPN [place] [employer], [facility].; [employer], [employer]. 10-14-2013 15:28-0500 Body mass index (BMI) [Percentile] Per age and sex 77 % Maryana Flores [facility], [facility].; [employer]. 10-14-2013 15:28-0500 Body mass index (BMI) [Ratio] 22.25 kg/m2 Maryana Buckleyrobinson IZAGUIRRE [facility] [place] [facility], [facility] 10-14-2013 15:28-0500 Body surface area Derived from formula 1.34 m2 Maryana Werobinson IZAGUIRRE [facility] [place] [facility], [employer]. 10-14-2013 15:28-0500 Body weight 45.98 kg Maryana Buckleyrobinson IZAGUIRRE [place] [employer] [facility], [facility].; [employer], [employer]. 10-14-2013 15:28-0500 Diastolic blood pressure 65 mm[Hg] Maryana Buckleyrobinson [facility] [employer], [employer]. Comment on above: Patient Position: Sitting; Cuff Location : Left Arm; Cuff Size: Standard 10-14-2013 15:28-0500 Heart rate 83 /min Maryana Werobinson IZAGUIRRE [place] [employer] [employer], [employer]. Comment on above: Pattern: Regular 10-14-2013 15:28-0500 Systolic blood pressure 100 mm[Hg] [facility] [employer], [employer]. Comment on above: Patient Position: Sitting; Cuff Location : Left Arm; Cuff Size: Standard 10-28-2012 15:21-0400 Body height 143.51 cm Kristin Ríosey HIDE WORKER [facility] [employer], [employer]. 10-28-2012 15:21-0400 Body mass index (BMI) [Percentile] Per age and sex 49 % Kristin Byrnesuckey HIDE WORKER [place] [employer] [employer], [employer]. 10-28-2012 15:21-0400 Body mass index (BMI) [Ratio] 18.94 kg/m2 Falguni Tylersville [facility] [employer] 10-28-2012 15:21-0400 Body surface area Derived from formula 1.25 m2 Falguni Margot HIDE WORKER [place] [employer] [employer], [employer]. 10-28-2012 15:21-0400 Body weight 39.01 kg Kristin Frost ZINA [facility] [employer] 10-28-2012 15:21-0400 Diastolic blood pressure 64 mm[Hg] Kristin Frost HIDE WORKER [facility] [employer] Comment on above: Patient Position: Sitting; Cuff Location : Left Arm; Cuff Size: Large 10-28-2012 15:21-0400 Heart rate 84 /min Kristin Frost HIDE WORKER [facility] [employer] Comment on above: Pattern: Regular 10-28-2012 15:21-0400 Systolic blood pressure 99 mm[Hg] Kristin Frost [facility] [employer] Comment on above: Patient Position: Sitting; Cuff Location : Left Arm; Cuff Size: Large 07-04-2012 08:170500 Body height 144.15 cm Maryana Flores LPN [facility] [employer] 07-04-2012 08:17-0500 Body mass index (BMI) [Percentile] Per age and sex 21 % [facility] [employer] 07-04-2012 08:17-0500 Body mass index (BMI) [Ratio] 16.84 kg/m2 Maryana Flores LPN [facility] [employer] 07-04-2012 08:17-0500 Body surface area Derived from formula 1.2 m2 Maryana Flores LPN [place] [facility], [facility] [employer], [employer]. 07-04-2012 08:17-0500 Body temperature 96.7 [degF] Maryana Flores [facility] [employer], [employer]. Comment on above: Method: Tympanic 07-04-2012 08:17-0500 Body weight 34.98 kg Maryana Flores LPN [place] [facility] [employer] 10-17-2011 15:090500 Body height 139.[address] [facility], [facility].; [place] [facility]. 10-17-2011 15:09-0500 Body mass index (BMI) [Percentile] Per age and sex 32 % Kristin Frost [facility], [facility].; [place] [facility], [employer]. 10-17-2011 15:09-0500 Body mass index (BMI) [Ratio] 17.2 kg/m2 Kristin Frost [facility], [facility].; [place] [employer] [facility], [employer]. 10-17-2011 15:09-0500 Body surface area Derived from formula 1.[address] [facility], [facility].; [employer] [facility], [employer]. 10-17-2011 15:09-0500 Body weight 33.57 kg Kristin Frost HIDE WORKER [facility], [facility].; [employer] [facility], [employer]. 10-17-2011 15:09-0500 Diastolic blood pressure 69 mm[Hg] [facility].; [employer]. Comment on above: Patient Position: Sitting; Cuff Location : Left Arm; Cuff Size: Large 10-17-2011 15:09-0500 Heart rate 84 /min Kristin [facility].; [employer] [facility]. Comment on above: Pattern: Regular 10-17-2011 15:09-0500 Systolic blood pressure 108 mm[Hg] Kristin [facility].; [employer] [facility]. Comment on above: Patient Position: Sitting; Cuff Location : Left Arm; Cuff Size: Large Encounters Encounter Date Encounter Type Care Provider Facility Start: 12-17-2024 End: 12-17-2024 Historical Summary Luis Enrique Anderson MD [facility] Start: 12-04-2024 End: 12-04-2024 ambulatory Luis Enrique Anderson Facility:[facility] Start: 08-17-2024 End: 08-17-2024 Medication Luis Enrique Anderson MD [facility] Start: 08-12-2024 End: 08-12-2024 Orders Luis Enrique Anderson MD Work Phone: [employer] Start: 07-31-2024 End: 07-31-2024 ambulatory Luis Enrique Anderson Facility:[facility] Start: 07-03-2024 End: 07-03-2024 Office outpatient visit 15 minutes Luis Enrique Anderson MD Work Phone: [employer] Start: 02-06-2024 End: 02-06-2024 ambulatory Luis Enrique Anderson Facility:[facility] Start: 01-03-2024 End: 01-03-2024 Office outpatient visit 15 minutes Luis Enrique Anderson MD Work Phone: [employer] Start: 12-06-2023 End: 12-06-2023 Periodic preventive med est patient 18-39 yrs Luis Enrique Anderson MD Work Phone: [employer] Start: 12-06-2023 End: 12-06-2023 Patient encounter status No Gomez LPN [employer].; [employer]. Start: 12-06-2023 Review Luis Enrique Anderson MD Work Phone: [employer]. Start: 09-17-2022 End: 09-17-2022 ambulatory LUIS ENRIQUE [facility] Start: 06-11-2022 End: 06-12-2022 ambulatory [facility] Start: 06-11-2022 End: 06-11-2022 ambulatory [facility] Start: 04-25-2022 End: 04-25-2022 ambulatory [facility] Start: 04-25-2022 End: 04-25-2022 ambulatory [facility] Start: 05-19-2021 End: 05-19-2021 Patient encounter status Veena Knott LPN [employer].; [employer]. Start: 05-19-2021 End: 05-19-2021 Periodic preventive med est patient 18-39 yrs Luis Enrique Anderson MD Work Phone: [employer]. Start: 07-28-2020 End: 07-28-2020 Patient encounter procedure [facility] Start: 06-16-2020 End: 06-16-2020 Patient encounter procedure [facility] Start: 06-08-2020 End: 06-08-2020 Patient encounter procedure [facility] Start: 06-03-2020 End: 06-03-2020 Patient encounter procedure LUIS ENRIQUE ANDERSON [facility] Start: 05-25-2020 End: 05-25-2020 Patient encounter procedure [facility] Start: 04-01-2020 End: 04-01-2020 Patient encounter procedure [facility] Start: 03-18-2020 End: 03-18-2020 Patient encounter procedure LUIS ENRIQUE ANDERSON [facility] Start: 03-18-2020 End: 03-18-2020 Patient encounter procedure Luis Enrique Anderson MD Work Phone: [employer]. Start: 02-08-2020 Patient encounter procedure UNKNOWN PROVIDER Facility:[facility] Start: 09-12-2019 End: 09-12-2019 Office outpatient visit 15 minutes Luis Enrique Anderson MD Work Phone: [employer]. Start: 09-01-2019 End: 09-01-2019 Office outpatient visit 15 minutes Luis Enrique Anderson MD Work Phone: [employer]. Start: 04-29-2019 End: 04-29-2019 Orders Luis Enrique Anderson MD Work Phone: [employer]. Start: 03-18-2019 End: 03-18-2019 Patient encounter procedure Luis Enrique Anderson MD Work Phone: [employer]. Start: 03-03-2019 End: 03-03-2019 Telephone follow-up Luis Enrique Anderson MD Work Phone: [employer]. Start: 01-13-2019 End: 01-13-2019 Telephone follow-up Luis Enrique Anderson MD Work Phone: [employer]. Start: 01-09-2019 End: 01-09-2019 Office outpatient visit 15 minutes Luis Enrique Anderson MD Work Phone: [employer] Start: 01-02-2019 End: 01-02-2019 Patient encounter procedure Luis Enrique Anderson MD Work Phone: [employer]. Start: 07-29-2018 End: 07-29-2018 Telephone follow-up Luis Enrique Anderson MD Work Phone: [employer]. Start: 03-18-2018 End: 03-18-2018 Periodic preventive med est patient 18-39 yrs Luis Enrique Anderson MD Work Phone: [employer]. Start: 08-17-2017 End: 08-17-2017 Office outpatient visit 15 minutes Luis Enrique Anderson MD Work Phone: [employer]. Start: 08-16-2017 End: 08-16-2017 Medication Luis Enrique Anderson MD Work Phone: [employer]. Start: 05-28-2017 End: 05-28-2017 Office outpatient visit 15 minutes Luis Enrique Anderson MD Work Phone: [employer]. Start: 05-16-2017 End: 05-16-2017 Office outpatient visit 15 minutes Luis Enrique Anderson MD Work Phone: [employer]. Start: 03-07-2017 End: 03-07-2017 Office outpatient visit 15 minutes Luis Enrique Anderson MD Work Phone: [employer]. Start: 02-11-2017 End: 02-11-2017 Office outpatient visit 15 minutes Luis Enrique Anderson MD Work Phone: [employer]. Start: 12-14-2016 End: 12-14-2016 Office outpatient visit 15 minutes Luis Enrique Anderson MD Work Phone: [employer]. Start: 11-07-2016 End: 11-07-2016 Medication Luis Enrique Anderson MD Work Phone: [employer]. Start: 11-05-2016 End: 11-05-2016 Orders Luis Enrique Anderson MD Work Phone: [employer]. Start: 11-05-2016 End: 11-05-2016 Office outpatient visit 15 minutes Luis Enrique Anderson MD Work Phone: [employer] Start: 07-27-2016 End: 07-27-2016 Nursing evaluation of patient and report Luis Enrique Anderson MD Work Phone: [employer] Start: 03-15-2016 End: 03-15-2016 Patient encounter procedure Luis Enrique Anderson MD Work Phone: [employer] Start: 03-15-2016 End: 03-15-2016 Patient encounter status Sobia Herron RN [employer]; [employer]. Start: 04-23-2015 End: 04-24-2015 Patient encounter procedure Luis Enrique Anderson MD Work Phone: [employer] Start: 03-16-2015 End: 03-16-2015 Office outpatient visit 15 minutes Luis Enrique Anderson MD Work Phone: [employer] Start: 03-16-2015 End: 03-16-2015 Patient encounter status Luis Enrique Anderson MD Work Phone: [employer]; [employer]. Start: 10-14-2013 End: 10-14-2013 Patient encounter procedure Luis Enrique Anderson MD Work Phone: [employer] Start: 10-28-2012 End: 10-28-2012 Patient encounter procedure Luis Enrique Anderson MD Work Phone: [employer] Start: 07-04-2012 End: 07-04-2012 Patient encounter procedure Luis Enrique Anderson MD Work Phone: [employer] Start: 07-03-2012 End: 07-03-2012 Nursing evaluation of patient and report Luis Enrique Anderson MD Work Phone: [employer] Start: 10-17-2011 End: 10-17-2011 Patient encounter procedure Luis Enrique Anderson MD Work Phone: [employer] Start: 06-19-2011 End: 06-19-2011 Office outpatient visit 5 minutes Luis Enrique Anderson MD Work Phone: [employer] Start: 04-21-2011 End: 04-21-2011 Orders Luis Enrique [facility] Start: 04-21-2011 End: 04-21-2011 Routine or child health check Luis Enrique Anderson MD Work Phone: [facility].; [facility] Patient encounter status Luis Enrique Anderson MD Work Phone: [facility].; [place] [facility] Patient encounter status Pawel Robert HIDE WORKER [facility] [place] [facility]. Patient encounter status No Cownaynett HIDE WORKER [facility] [place] [facility]. Routine or ch ild health check Maryana Mark [facility].; [facility] Procedures Date Procedure Procedure Detail Performing Clinician Start: 12-04-2024 End: 12-04-2024 Most Recent Endo Report Luis Enrique Anderson MD Work Phone: Start: 07-03-2024 End: 07-03-2024 Flu immunize order/admin Dixie bah PA-C Work Phone: Start: 12-06-2023 End: 12-06-2023 Depression screening Dixie Gupta Work Phone: Start: 12-06-2023 End: 12-06-2023 Pos clin depres scrn f/u doc Dixie Fink PA-C Work Phone: Start: 05-19-2021 End: 05-19-2021 Depression screening Dixie HORNE -Hyun Work Phone: Start: 05-19-2021 End: 05-19-2021 Pos clin depres scrn f/u doc Dixie Fink PA-C Work Phone: Start: 03-18-2018 End: 03-19-2018 Depression screen annual Luis Enrique Bruce Work Phone: Start: 03-07-2017 End: 03-07-2017 Ct abdomen & pelvis w/contrast material Dixie Fink PA-C Work Phone: Comment on above: Hold pt and call res ult to Jenelle Fink Start: 03-16-2015 End: 03-16-2015 Screening test visual acuity quantitative [place] Luis Enrique Anderson MD Work Phone: Start: 10-14-2013 End: 10-14-2013 Screening test visual acuity quantitative meme Anderson MD Work Phone: Start: 10-28-2012 End: 10-28-2012 Screening test visual acuity quantitative meme Anderson MD Work Phone: Start: 10-17-2011 End: 10-17-2011 Screening test visual acuity quantitative meme Anderson MD Work Phone: Appendectomy Dixie bah PA-C Work Phone: Plan of Treatment Date Care Activity Detail Author Start: 01-01-2025 Patient encounter procedure Medical; PHYSICAL - physical [employer]. Start: 01-Jan-2025 13:10-04:00 HEVER Fink Appointment Request [employer]. Start: 07-03-2024 Patient encounter procedure Medical; EXTENDED RTN - 6 mo f/u [employer]. Start: 03-Jul-2024 08:40-05:00 HEVER Fink Appointment Request [employer]. Start: 01-03-2024 Patient encounter procedure Medical; EXTENDED RTN - 1 mo f/u [employer]. Start: 03-Jan-2024 08:20-04:00 HEVER Fink Appointment Request [employer]. Start: 12-06-2023 Cytp cerv/vag auto t hin layer prep mnl screen ThinPrep Pap Test with HPV reflex mRNA ([id number] ) ([id number]) Start: 06-Dec-2023 08:01-04:00 Request [employer]. Start: 12-06-2023 Iadna chlamydia trachomatis amplified probe tq GC / CHLAMYDIA RNA, TMA ([id number]) ([id number]) Start: 06-Dec-2023 08:01-04:00 Request [employer]; [employer] Immunizations Immunization Date Immunization Notes Care Provider Fa sj 07-03-2024 influenza, injectabl e, quadrivalent, preservative free Luis Enrique Andreson MD [facility]; [facility] Comment on above: Site: Left DeltoidVI S Given: * Influenza (Flu) Vaccine (Inactivated or Recombinant) (03/24/21) 07-27-2016 influenza, injectabl e, quadrivalent, contains preservative Luis Enrique Anderson MD Work Phone: [employer]; [employer] Comment on above: Site: Deltoid (Left) VIS Given: * Influenza - Inactivated (03/25/15) 07-27-2016 unknown vaccine or i mmune globulin Luis Enrique Anderson MD Work Phone: [employer]; [employer]. 03-15-2016 Meningococcal, MCV4, unspecified conjugate formulation(groups A, C, Y and W-135) Luis Enrique Anderson MD Work Phone: [employer]; [employer]. 03-15-2016 Human Papillomavirus 9-valent vaccine Luis Enrique Anderson MD Work Phone: [place] [employer]; [employer]. Comment on above: Site: Deltoid (Right )VIS Given: * HPV-Gardasil 9 (11/17/2015) 03-15-2016 meningococcal oligosaccharide (groups A, C, Y and W-135) diphtheria toxoid conjugate vaccine (MCV4O) Luis Enrique Anderson MD Work Phone: [employer]; [facility] Comment on above: Site: Deltoid (Left) VIS Given: * Meningococcal Vaccine (11/17/2015) 07-03-2012 influenza, seasonal, injectable Luis Enrique Anderson MD Work Phone: [employer]; [facility] Comment on above: Site: Deltoid (Left) VIS Given: * Inactivated Influenza Vaccine (03/29/09) * Inactivated Influenza Vaccine (03/13/11) * Influenza vaccine [id number], inactivated (02/18/2012) * VIS Given (Unspecified) 07-03-2012 IMMUNIZATION ADMIN ([id number]) Luis Enrique Anderson MD Work Phone: [employer]; [employer] 06-19-2011 influenza, seasonal, injectable Luis Enrique Anderson MD Work Phone: [employer]; [employer] Comment on above: Site: Deltoid (Left) VIS Given: * Inactivated Influenza Vaccine (03/29/09) * Inactivated Influenza Vaccine (03/13/11) * Inactivated Influenza Vaccine (03/13/11) * Inactivated Influenza Vaccine (03/13/11) * Inactivated Influenza Vaccine (03/13/11) * Inactivated Influenza Vaccine (03/13/11) * Inactivated Influenza Vaccine (03/13/11) * VIS Given (Unspecified) * VIS Given (Unspecified) 06-19-2011 IMMUNIZATION ADMIN ([id number]) Luis Enrique Anderson MD Work Phone: [employer]; [employer]. 04-21-2011 tetanus toxoid, redu jonathan diphtheria toxoid, and acellular pertussis vaccine, adsorbed Luis Enrique Anderson MD Work Phone: [employer]; [employer]. Comment on above: Site: Deltoid (Right )VIS Given: * Tetanus/Diphtheria/(Pertussis) (Td/Tdap) (07/06/08) 06-09-2009 novel influenza-H1N1 -09, all formulations Luis Enrique Anderson MD Work Phone: [employer]; [employer]. 07-02-2008 influenza, seasonal, injectable Luis Enrique Anderson MD Work Phone: [facility]; [employer]. 07-01-2007 influenza, seasonal, injectable Luis Enrique Anderson MD Work Phone: [employer]; [employer]. 06-19-2006 influenza, seasonal, injectable Luis Enrique Anderson MD Work Phone: [facility] 06-21-2005 influenza, seasonal, injectable Luis Enrique Anderson MD Work Phone: [facility] 06-22-2004 influenza, seasonal, injectable Luis Enrique Anderson MD Work Phone: [facility] 12-08-2003 diphtheria, tetanus toxoids and acellular pertussis vaccine Luis Enrique Anderson MD Work Phone: [facility] 12-08-2003 measles, mumps and rubella virus vaccine Luis Enrique Anderson MD Work Phone: [facility] 12-08-2003 poliovirus vaccine, inactivated Luis Enrique Anderson MD Work Phone: [facility] 06-30-2003 influenza, seasonal, injectable Luis Enrique Anderson MD Work Phone: [facility] 04-28-2003 pneumococcal conjuga te vaccine, 13 valent Luis Enrique Anderson MD Work Phone: [facility] 11-14-2000 diphtheria, tetanus toxoids and acellular pertussis vaccine Luis Enrique Anderson MD Work Phone: [facility] 11-14-2000 haemophilus influenz ae type b vaccine, PRP-T conjugate Luis Enrique Anderson MD Work Phone: [facility] 11-14-2000 poliovirus vaccine, inactivated Luis Enrique Anderson MD Work Phone: [facility].; [facility]. 08-22-2000 measles, mumps and rubella virus vaccine Luis Enrique Anderson MD Work Phone: [facility] 05-14-2000 hepatitis B vaccine, pediatric or pediatric/adolescent dosage Luis Enrique Anderson MD Work Phone: [facility] 1999 diphtheria, tetanus toxoids and acellular pertussis vaccine Luis Enrique Anderson MD Work Phone: [facility] 1999 haemophilus influenz ae type b vaccine, PRP-T conjugate Luis Enrique Anderson MD Work Phone: [facility] 1999 diphtheria, tetanus toxoids and acellular pertussis vaccine Luis Enrique Anderson MD Work Phone: [facility] 1999 haemophilus influenz ae type b vaccine, PRP-T conjugate Luis Enrique Anderson MD Work Phone: [facility] 1999 poliovirus vaccine, inactivated Luis Enrique Anderson MD Work [facility]: [facility] 1999 diphtheria, tetanus toxoids and acellular pertussis vaccine Luis Enrique Anderson MD Work Phone: [facility] 1999 haemophilus influenz ae type b vaccine, PRP-T conjugate Luis Enrique Anderson MD Work Phone: [facility] 1999 hepatitis B vaccine, pediatric or pediatric/adolescent dosage Luis Enrique Anderson MD Work Phone: [facility] 1999 poliovirus vaccine, inactivated Luis Enrique Anderson MD Work Phone: [facility] 1999 hepatitis B vaccine, pediatric or pediatric/adolescent dosage Luis Enrique Anderson MD Work Phone: [facility].; [facility] Payers Date Payer Category Payer Self-pay 2023 Unknown [id number] 2020 Unknown 1999 Unknown [id number] 1999 Unknown [id number] [id number] [id number] 1999 Unknown [id number] [id number] [id number] 1999 Unknown [id number] 1999 Unknown [id number] 2.16.84 [id number] 1999 Unknown [id number] 2.16.84 [id number] 1999 Unknown [id number] 2.16.84 [id number] 1999 Unknown [id number] 2.16.84 [id number] 1999 Unknown [id number] 2.16. [id number] 1999 Unknown [id number] 2.16. [id number] 1999 Unknown [id number] 2.16. [id number] Unknown [id number] Unknown [id number] Unknown [id number] Unknown [id number] 2.16.8 [id number] Unknown [id number] 2.16.8 [id number] Unknown [id number] .16.8 [id number] Social History Date Type Detail Facility Alcohol Use: Alcohol Use: ; None. [facility], [facility]. Caffeine Use Caffeine Use [facility], [facility] Tobacco Use: Tobacco Use: ; Never smoker. [facility] [employer] [facility] [employer] Work Phone: Never smoked tobacco [employer] Work Phone: Summary Purpose Family History Diabetes Mellitus Type II Status:Active Commen ts:Maternal Grandmother. Paternal Grandmother. Osteoarthritis Status:Active Comments:Grandmo ther Diabetes Mellitus Type II Status:Active Commen ts:Maternal Grandmother. Paternal Grandmother. Osteoarthritis Status:Active Comments:Grandmo ther Diabetes Mellitus Type II Status:Active Commen ts:Maternal Grandmother. Paternal Grandmother. Osteoarthritis Status:Active Comments:Grandmo ther Diabetes Mellitus Type II Status:Active Commen ts:Maternal Grandmother. Paternal Grandmother. Osteoarthritis Status:Active Comments:Grandmo ther Diabetes Mellitus Type II Status:Active Commen ts:Maternal Grandmother. Paternal Grandmother. Osteoarthritis Status:Active Comments:Grandmo ther Diabetes Mellitus Type II Status:Active Commen ts:Maternal Grandmother. Paternal Grandmother. Osteoarthritis Status:Active Comments:Grandmo ther Diabetes Mellitus Type II Status:Active Commen ts:Maternal Grandmother. Paternal Grandmother. Osteoarthritis Status:Active Comments:Grandmo ther Diabetes Mellitus Type II Status:Active Commen ts:Maternal Grandmother. Paternal Grandmother. Osteoarthritis Status:Active Comments:Grandmo ther Diabetes Mellitus Type II Status:Active Commen ts:Maternal Grandmother. Paternal Grandmother. Osteoarthritis Status:Active Comments:Grandmo ther Diabetes Mellitus Type II Status:Active Commen ts:Maternal Grandmother. Paternal Grandmother. Osteoarthritis Status:Active Comments:Grandmo ther Diabetes Mellitus Type II Status:Active Commen ts:Maternal Grandmother. Paternal Grandmother. Osteoarthritis Status:Active Comments:Grandmo ther Diabetes Mellitus Type II Status:Active Commen ts:Maternal Grandmother. Paternal Grandmother. Osteoarthritis Status:Active Comments:Grandmo ther Diabetes Mellitus Type II Status:Active Commen ts:Maternal Grandmother. Paternal Grandmother. Osteoarthritis Status:Active Comments:Grandmo ther Diabetes Mellitus Type II Status:Active Commen ts:Maternal Grandmother. Paternal Grandmother. Osteoarthritis Status:Active Comments:Grandmo ther Advance Directives No Advanced Directives Records FoundNo Advanced Directives Records FoundNo Advanced Directives Records FoundNo Advanced Directives Records FoundNo Advanced Directives Records FoundNo Advanced Directives Records FoundNo Advanced Directives Records FoundNo Advanced Directives Records Found Additional Source Comments INFORMATION SOURCE (unrecogn ized section and content) DATE CREATED AUTHOR 03/06/2020 [facility] DATE CREATED AUTHOR AUTHOR'S ORGANIZ ATION 07/31/2020 [facility] DATE CREATED AUTHOR AUTHOR'S ORGANIZ ATION 08/17/2020 [facility] DATE CREATED AUTHOR AUTHOR'S ORGANIZ ATION 04/25/2022 [facility] DATE CREATED AUTHOR AUTHOR'S ORGANIZ ATION 04/26/2022 [facility] DATE CREATED AUTHOR AUTHOR'S ORGANIZ ATION 11/14/2022 [facility] DATE CREATED AUTHOR AUTHOR'S ORGANIZ ATION 12/12/2023 [facility] DATE CREATED AUTHOR AUTHOR'S ORGANIZ ATION 12/06/2024 [facility] FOR RECORDS PERTAINING TO PATIENTS WHO ARE OR HAVE BEEN ENROLLED IN A CHEMICAL DEPENDENCY/SUBSTANCEABUSE PROGRAM, SOME INFORMATION MAY BE OMITTED. This clinical summary was aggregated from multiple sources. Caution should be exercised in using it in the provision of clinical care. This summary normalizes information from multiple sources, and as a consequence, information in this document may materially change the coding, format and clinical context of patient data. In addition, data may be omitted in some cases. CLINICAL DECISIONS SHOULD BE BASED ON THE PRIMARY CLINICAL RECORDS. [facility]. provides no warranty or guarantee of the accuracy or completeness of information in this document.
[2025-02-06 10:18] LABS: Microalbumin,Random Urine < 12.0 mg/L (NO RANGE EST.); Microalbumin:Creatinine Ratio UNABLE TO CALCULATE mg/g CRE
[2025-02-06 10:25] LABS: ALB/GLOB Ratio 1.4 RATIO (0.9-2.4); AST(SGOT) 17 U/L (<=31); Alanine Aminotransfer ALT/SGPT 13 U/L (<=34); Albumin, Serum 4.6 g/dL (3.5-5.0); Alkaline Phosphatase 87 U/L (35-104); Anion Gap 11 (5-15); BUN 12 mg/dL (4-19); BUN/Creat Ratio 13.9 RATIO (10-20); Calcium,Total 9.6 mg/dL (7.6-11.0); Carbon Dioxide 25.6 mmol/L (21.0-32.0); Chloride 102 mmol/L (98-108); Cholesterol 167 mg/dL (<=200); Creatinine, Serum 0.89 mg/dL (0.70-1.20); EST Glomerular Filtration Rate 93 (>60); Globulin 3.2 g/dL (2.2-4.2); Glucose 150 mg/dL (70-99); High Density Lipoprotein 55 mg/dL; Low Density Lipoprotein Calc. 97 mg/dL; Potassium 4.1 mmol/L (3.3-5.1); Protein, Total 7.8 g/dL (5.9-8.4); Sodium Level 139 mmol/L (133-145); Total Bilirubin 0.58 mg/dL (0.00-1.30); Triglycerides 76 mg/dL; Very Low Density Lipoprotein 15 mg/dL (5-40); cholesterol:hdl ratio screen 3.04
== END | disposition home or self-care (01) ==
PROVIDERS: PCP Family Medicine; Referring Provider Internal Medicine Endocrinology, Diabetes & Metabolism; Visit Provider Internal Medicine Endocrinology, Diabetes & Metabolism
DX: E10.9 Type 1 diabetes mellitus without complications (principal)
CPT/HCPCS: 36415; 80053; 80061; 82043; 82570; 84443